=== PATIENT | female | born 1990 | race Hispanic/Latino ===

== ENCOUNTER → 2017-02-14 | Outpatient (CLI) | payer OTHER ==
[~2017-02-14] MED LIST: ACET1TAB43 PO; ACYC200C PO; AGM875T PO; AMOX500C2 PO; CEPH500T PO; CIPR500S2 PO; DOCU-143 PO; FERR-74 PO; FERR325T74 PO; HYDR-3812 PO; IBUP-1773 PO; IBUP-30 PO; MAGN-47 PO; NITR-65 PO; NITR100C PO; NITR100C3 PO; OMEP20CA12 PO; PHEN200T27 PO; PREN-93 PO; PREN1TAB39 PO; PREN1TAB71 PO; PSYL1PAC15 PO; RT-ALBUINH IH
--- NOTE | 2017-02-14 13:48 | Diagnostic Imaging Report ---
INDICATION: Elevated liver function tests. Right upper quadrant ultrasound performed in the routine fashion. FINDINGS: The liver shows normal echogenicity with no focal lesions. Gallbladder has been removed. Common duct is not well seen. There is no intrahepatic biliary dilatation. The pancreas is not well seen due to overlying gas. There is no ascites. Right kidney measures 10.1 cm in length and appears normal. Hepatopetal flow in the normal direction towards the liver. IMPRESSION: Status post cholecystectomy. No evidence of biliary dilatation. No focal liver lesion or ascites. Study is partially limited as described above. Dictated by: Dictated on workstation # [id number]
== END ==
LOC: RAD 07:31
PROVIDERS: ATTEND Family Medicine
DX: R94.5 Abnormal results of liver function studies (principal)
CPT/HCPCS: 76700

== ENCOUNTER 2017-11-07 17:17 | Emergency (ER) | payer SELFPAY ==
[~2017-11-07] VITALS: Ht 152.4 cm; Wt 68.0 kg
[2017-11-07] MEDS ORDERED: LACTATED RINGERS 1,000 ML IV ONE (17:53)
[2017-11-07] MEDS ORDERED: ONDANSETRON 4 MG/2 ML (SDV) Z0FRAN IVP ONE (18:00)
[2017-11-07] MEDS ORDERED: fentaNYL INJECTION 100 MCG/2 ML AMP IVP ONE (18:00)
--- NOTE | 2017-11-07 18:01 | ED Back Pain ---
General Chief Complaint: Back Problems Stated Complaint: LOWER BACK PAIN Source of Information: Patient Exam Limitations: Language Barrier (language line used) (ADAM SON) History of Present Illness Time Seen by Provider: 17:22 Initial Comments Patient present to ER by private conveyance with her family and a chief complaint of back pain on the left side flank. This pain has been getting worse the last 2-3 days. She has a history of about 3 months ago a similar pain that was worked up by her primary care physician Dr. Raygoza and she was told she had a kidney stone. She used ibuprofen and got over it spontaneously. She was recommended to go for more examinations after the CT scan at that time but she says she did not do it. She has a unfortunate history of a 2 week stay in the hospital at [place], [place] after a gallbladder surgery approximately a year ago and this is made her very concerned about going to hospitals or doctors. She says she was seen by her doctor either yesterday or today and was told she needed to stop taking somewhat ibuprofen and come to the ER for further evaluation. She was set up a few days ago to come in for a CT scan but she has not done that yet. Her back pain feels like somebody is inside her flank pressing away and hurts very severe. He feels burning. She has burning when she urinates. She has no shortness of breath. She does have occasional nausea but has not vomited yet. Is better when she is moving around and worse when she tries to lie down or sit still. No history of trauma. She is not seeing any blood in the urine. She denies any fevers or chills. She's had no weakness, falls, incontinence of urine or bowel or hesitancy of urine. She's had no numbness or tingling. She's had no sciatic pains. The pain does not radiate anywhere. (ADAM SON) Allergies and Home Medications Allergies Coded Allergies: No Known Drug Allergies (Unverified , 11/02/16) Home Medications Naproxen 500 Mg Tablet, 500 MG PO BID, #20 Prescribed by: FARZANA GARNER on 11/07/172200 Nitrofurantoin Monohyd/M-Cryst 100 Mg Capsule, 100 MG PO BID, #20 Prescribed by: FARZANA GARNER on 11/07/172200 Constitutional: No chills, No diaphoresis, No fever, No malaise EENTM: No eye pain Respiratory: No cough, No short of breath Cardiovascular: No chest pain, No palpitations Gastrointestinal: abdominal pain, No constipation, No diarrhea, nausea, No vomiting Genitourinary: No discharge, dysuria, frequency Musculoskeletal: see HPI, back pain Skin: No pruritus, No rash Psychiatric/Neurological: Denies Headache, Denies Numbness, Denies Paresthesia (ADAM SON) Past Hakghpx-Fkcamq-Cgoqub Hx Patient Social History Recent Foreign Travel: No Contact w/Someone Who Travel: No Recent Hopitalizations: No (ADAM SON) Immunizations Up To Date Tetanus Booster (TDap): Less than 5yrs PED Vaccines UTD: No Date of Influenza Vaccine: Dec 21, 2015 (ADAM SON) Seasonal Allergies Seasonal Allergies: No (ADAM SON) Surgeries Surgeries: Gallbladder (ADAM SON) Reproductive System Hx Reproductive Disorders: No Sexually Transmitted Disease: Yes (+HSV) HIV/AIDS: No Female Reproductive Disorders: Denies (ADAM SON) Blood Transfusions Adverse Reaction to a Blood Tr: No (ADAM SON) Family Medical History Significant Family History: Cancer Family Medial History: Cancer 19 MOTHER (SPINAL CORD CANCER?) Congenital heart disease G8 SISTER Family history: Cardiovascular disease G8 SISTER MATERNAL GRANDMOTHER Family history: Diabetes mellitus MATERNAL GRANDMOTHER Seizure disorder MATERNAL GRANDMOTHER Stroke MATERNAL GRANDMOTHER (ADAM SON) Family Medial History: Cancer 19 MOTHER (SPINAL CORD CANCER?) Congenital heart disease G8 SISTER Family history: Cardiovascular disease G8 SISTER MATERNAL GRANDMOTHER Family history: Diabetes mellitus MATERNAL GRANDMOTHER Seizure disorder MATERNAL GRANDMOTHER Stroke MATERNAL GRANDMOTHER (FARZANA GARNER DO) Physical Exam Vital Signs Vital Sign - Last 12Hours 11/07/17 17:28 Temp 98.0 Pulse 76 Resp 20 B/P (MAP) 122/73 (89) Pulse Ox 76 O2 Delivery Room Air (ANAHI GARNERA Alice GALAN) Vital Signs Capillary Refill : (ADAM SON) General Appearance: WD/WN, Anxious, Mild Distress HEENT: PERRL/EOMI, Pharynx Normal (oral mucosa is moist) Neck: Full Range of Motion, Normal Inspection, Non Tender (.), Supple Cardiovascular: Regular Rate, Rhythm, No Edema Respiratory: Chest Non Tender, Lungs Clear Peripheral Pulses: 2+ Dorsalis Pedis (R), 2+ Left Dors-Pedis (L), 2+ Radial Pulses (R), 2+ Radial Pulses (L) Gastrointestinal: Normal Bowel Sounds, Non Tender, Soft Back: Normal Inspection, No Vertebral Tenderness, CVA Tenderness (R), Other ( tenderness to palpation over the L5-S1 facet joint that is less painful and different from the pain she is feeling when percussing over her right costovertebral angle.) Extremity: Normal Capillary Refill, Normal Inspection, Non Tender, No Calf Tenderness Neurologic/Psychiatric: Alert, Oriented x3, No Motor/Sensory Deficits Skin: Normal Color, Warm/Dry (ADAM OSN) Progress/Results/Core Measures Results/Orders Lab Results Laboratory Tests Test 11/07/17 18:11 11/07/17 18:26 Range/Units Urine Color YELLOW Urine Clarity SLIGHTLY CLOUDY Urine pH 7 5-9 Urine Specific [place] 1.020 1.016-1.022 Urine Protein 1+ H NEGATIVE Urine Glucose (UA) 3+ H NEGATIVE Urine Ketones NEGATIVE NEGATIVE Urine Nitrite NEGATIVE NEGATIVE Urine Bilirubin NEGATIVE NEGATIVE Urine Urobilinogen NORMAL NORMAL MG/DL Urine Leukocyte Esterase 2+ H NEGATIVE Urine RBC (Auto) 1+ H NEGATIVE Urine RBC 2-5 H /HPF Urine WBC 5-10 H /HPF Urine Squamous Epithelial Cells 10-25 H /HPF Urine Crystals PRESENT H /LPF Urine Amorphous Sediment FEW ANGELA URATES H /LPF Urine Bacteria FEW H /HPF Urine Casts NONE /LPF Urine Mucus NEGATIVE /LPF Urine Culture Indicated YES Urine Test NEGATIVE NEGATIVE Urine Opiates Screen NEGATIVE NEGATIVE Urine Oxycodone Screen NEGATIVE NEGATIVE Urine Methadone Screen NEGATIVE NEGATIVE Urine Propoxyphene Screen NEGATIVE NEGATIVE Urine Barbiturates Screen NEGATIVE NEGATIVE Ur Tricyclic Antidepressants Screen NEGATIVE NEGATIVE Urine Phencyclidine Screen NEGATIVE NEGATIVE Urine Amphetamines Screen NEGATIVE NEGATIVE Urine Methamphetamines Screen NEGATIVE NEGATIVE Urine Benzodiazepines Screen NEGATIVE NEGATIVE Urine Cocaine Screen NEGATIVE NEGATIVE Urine Cannabinoids Screen NEGATIVE NEGATIVE White Blood Count 12.2 H 4.3-11.0 10^3/uL Red Blood Count 4.41 4.35-5.85 10^6/uL Hemoglobin 13.5 11.5-16.0 G/DL Hematocrit 39 35-52 % Mean Corpuscular Volume 88 80-99 FL Mean Corpuscular Hemoglobin 31 25-34 PG Mean Corpuscular Hemoglobin Concent 35 32-36 G/DL Red Cell Distribution Width 12.8 10.0-14.5 % Platelet Count 367 130-400 10^3/uL Mean Platelet Volume 9.1 7.4-10.4 FL Neutrophils (%) (Auto) 52 42-75 % Lymphocytes (%) (Auto) 30 12-44 % Monocytes (%) (Auto) 9 0-12 % Eosinophils (%) (Auto) 9 0-10 % Basophils (%) (Auto) 0 0-10 % Neutrophils # (Auto) 6.4 1.8-7.8 X 10^3 Lymphocytes # (Auto) 3.6 1.0-4.0 X 10^3 Monocytes # (Auto) 1.1 H 0.0-1.0 X 10^3 Eosinophils # (Auto) 1.1 H 0.0-0.3 10^3/uL Basophils # (Auto) 0.0 0.0-0.1 10^3/uL Sodium Level 141 135-145 MMOL/L Potassium Level 3.5 L 3.6-5.0 MMOL/L Chloride Level 108 H 98-107 MMOL/L Carbon Dioxide Level 25 21-32 MMOL/L Anion Gap 8 5-14 MMOL/L Blood Urea Nitrogen 11 7-18 MG/DL Creatinine 0.55 L 0.60-1.30 MG/DL Estimat Glomerular Filtration Rate > 60 BUN/Creatinine Ratio 20 Glucose Level 118 H 70-105 MG/DL Calcium Level 8.7 8.5-10.1 MG/DL Total Bilirubin 0.2 0.1-1.0 MG/DL Aspartate Amino Transf (AST/SGOT) 19 5-34 U/L Alanine Aminotransferase (ALT/SGPT) 22 0-55 U/L Alkaline Phosphatase 115 40-136 U/L Total Protein 7.5 6.4-8.2 GM/DL Albumin 3.8 3.2-4.5 GM/DL (SHREYAS,FARZANA K DO) My Orders Orders - SHREYAS,FARZANA K DO Ct Abd/Pelvis Wo(Kidney Stone) (11/07/17 18:29) Abdomen/Kub 1view (11/07/17 18:29) Ceftriaxone Injection (Rocephin Injectio (11/07/17 21:00) Rx-Nitrofurantoin Baker (Rx-Macrobid) (11/07/17 22:01) Rx-Naproxen (Rx-Naprosyn) (11/07/17 22:01) (FARZANA GARNER DO) Medications Given in ED Current Medications Medications Dose Ordered Sig/Sunny Route Start Time Stop Time Status Last Admin Dose Admin Ceftriaxone Sodium 1000 mg/ Sodium Chloride 50 ml @ 100 mls/hr ONCE ONCE IV 11/07/17 21:00 11/07/17 21:29 DC 11/07/17 21:03 100 MLS/HR Fentanyl Citrate 50 mcg ONCE ONCE IVP 11/07/17 18:00 11/07/17 18:01 DC 11/07/17 18:11 50 MCG Lactated Ringer's 1,000 ml @ 0 mls/hr Q0M ONCE IV 11/07/17 17:53 11/07/17 17:56 DC 11/07/17 18:11 0 MLS/HR Ondansetron HCl 4 mg ONCE ONCE IVP 11/07/17 18:00 11/07/17 18:01 DC 11/07/17 18:11 4 MG (FARZANA GARNER DO) Vital Signs/I&O Vital Sign - Last 12Hours 11/07/17 17:28 Temp 98.0 Pulse 76 Resp 20 B/P (MAP) 122/73 (89) Pulse Ox 76 O2 Delivery Room Air (FARZANA GARNER DO) Progress Note : Time: 18:01 Progress Note Her pain is consistent with a kidney stone. We'll proceed with let and urine as well as treat her pain and nausea. If the urine shows red blood cells we'll get a CT scan of her abdomen pelvis without contrast. (ADAM SON) Progress Note : Progress Note 183--ASSUMED CARE FROM DR. SON, ALL TESTS PENDING. PT IS PAIN FREE MARKED DELAY IN OBTAINING CT RESULTS NO RETURN OF PAIN DURING ER STAY (FARZANA GARNER DO) Diagnostic Imaging Diagonstic Imaging: CT Plain Films/CT/US/NM/MRI: abdomen, pelvis (noncontrast kidney stone study.) Reviewed: Reviewed by Me (ADAM SON) Comments KUB--NO ACUTE PROCESS, PER RADIOLOGIST REPORT CT ABDOMEN/PELVIS--NO ACUTE PROCESS, BILATERAL NON -OBSTRUCTING INTRARENAL STONES, 3 CM RIGHT OVARIAN CYST--PER [facility]IE RADIOLOGIST VIA PHONE AT [phone] AND VIA [facility] VIA FAX @ [phone] Reviewed: Reviewed by Me, Discussed w/Radiologist (FARZANA GARNER DO) Transfer of Care Transfer of Care Time: 18:30 Care transferred to: Shreyas (ADAM SON) Departure Impression Impression: Primary Impression: Urinary tract infection Additional Impression: Right ovarian cyst Disposition: HOME, SELF-CARE Condition: Improved Departure-Patient Inst. Referrals: ESTRADA RAYGOZA MD (PCP/Family) Primary Care Physician Patient Instructions: Ovarian Cyst (DC), Urinary Tract Infection, Adult (DC) Add. Discharge Instructions: LOTS OF CLEAR LIQUIDS--NO COFFEE, POP OR TEA FOLLOW UP WITH DR. RAYGOZA IN 3-4 DAYS IF NO BETTER All discharge instructions reviewed with patient and/or family. Voiced understanding. Scripts Naproxen (Naproxen) 500 Mg Tablet 500 MG PO BID, #20 TAB Prov: FARZANA GARNER DO 11/07/17 Nitrofurantoin Monohyd/M-Cryst (Macrobid 100 mg Capsule) 100 Mg Capsule 100 MG PO BID, #20 CAP Prov: FARZANA GARNER DO 11/07/17 ADAM SON Nov 07, 2017 18:01 FARZANA GARNER DO Nov 07, 2017 18:38
[2017-11-07 18:30] LABS: BILIRUBIN,URINE NEGATIVE (NEGATIVE); KETONES,URINE NEGATIVE (NEGATIVE); LEUKOCYTE ESTERASE ,URINE 2+ (NEGATIVE); NITRITE,URINE NEGATIVE (NEGATIVE); PH,URINE 7 (5-9); PROTEIN,URINE 1+ (NEGATIVE); UROBILINOGEN,URINE NORMAL (NORMAL)
[2017-11-07 18:34] LABS: BASOPHILS % (AUTO) 0 % (0-10); EOSINOPHILS # (AUTO) 1.1 10^3/uL (0.0-0.3); EOSINOPHILS % (AUTO) 9 % (0-10); LYMPHOCYTES # (AUTO) 3.6 X 10^3 (1.0-4.0); LYMPHOCYTES % (AUTO) 30 % (12-44); MEAN CORPUSCULAR HEMOGLOBIN 31 PG (25-34); MEAN CORPUSCULAR HGB CONC 35 G/DL (32-36); MEAN CORPUSCULAR VOLUME 88 FL (80-99); MEAN PLATELET VOLUME 9.1 FL (7.4-10.4); MONOCYTES # (AUTO) 1.1 X 10^3 (0.0-1.0); MONOCYTES % (AUTO) 9 % (0-12); NEUTROPHILS # (AUTO) 6.4 X 10^3 (1.8-7.8); NEUTROPHILS % (AUTO) 52 % (42-75); PLATELET COUNT 367 10^3/uL (130-400); RED BLOOD COUNT 4.41 10^6/uL (4.35-5.85); RED CELL DISTRIBUTION WIDTH 12.8 % (10.0-14.5); WHITE BLOOD COUNT 12.2 10^3/uL (4.3-11.0)
[2017-11-07 19:00] LABS: ALANINE AMINOTRANSFERASE 22 U/L (0-55); ALBUMIN 3.8 GM/DL (3.2-4.5); ANION GAP 8 MMOL/L (5-14); ASPARTATE AMINO TRANSFERASE 19 U/L (5-34); BILIRUBIN,TOTAL 0.2 MG/DL (0.1-1.0); BLOOD UREA NITROGEN 11 MG/DL (7-18); BUN/CREATININE RATIO 20; CALCIUM 8.7 MG/DL (8.5-10.1); CARBON DIOXIDE 25 MMOL/L (21-32); CHLORIDE 108 MMOL/L (98-107); CREATININE SERUM 0.55 MG/DL (0.60-1.30); GFR ESTIMATED > 60; GLUCOSE 118 MG/DL (70-105); POTASSIUM 3.5 MMOL/L (3.6-5.0); SODIUM 141 MMOL/L (135-145); TOTAL PROTEIN 7.5 GM/DL (6.4-8.2)
--- NOTE | 2017-11-07 19:17 | Diagnostic Imaging Report ---
INDICATION: Right flank pain. COMPARISON: 10/20/2016. TECHNIQUE: Single radiograph of the abdomen dated 11/07/2017. FINDINGS: Surgical clips are identified within the right upper quadrant of the abdomen, new from the prior examination. 0.4 cm calcific density is noted overlying the inferior pole of the right renal shadow. No suspicious calcifications overlying the left renal shadow. Y-shaped radiopaque density overlying the midline pelvis, consistent with an intrauterine device, new from the prior exam. Gas and stool is noted throughout the colon. No dilated loops of small bowel. No differential air-fluid levels. No free air. No acute osseous abnormality. IMPRESSION: 1. Interval cholecystectomy and placement of intrauterine device. 2. There is a 4 mm calcification overlying the inferior pole of the right renal shadow, likely related to a renal calculus. Dictated by: Dictated on workstation # [id number]
[2017-11-07] MEDS ORDERED: cefTRIAXone INJECTION 1,000 MG in NS (IVPB) 50 ML IV ONE (21:00)
[2017-11-07] MEDS ORDERED: NITR-65 PO (22:01)
[2017-11-07] MEDS ORDERED: NAPR500T4 PO (22:01)
[2017-11-07] MEDS ORDERED: RX-NAPROXEN (NAPROSYN) 250 MG TAB PPK#4 PO STA (22:01)
[2017-11-07] MEDS ORDERED: RX-NITROFURANTOIN 100 MG (MACROBID) CAP PPK#2 PO STA (22:01)
[2017-11-07] MEDS ORDERED: RX-NITROFURANTOIN 100 MG (MACROBID) CAP PPK#2 PO ONE (22:07)
[2017-11-07] MEDS ORDERED: RX-NAPROXEN (NAPROSYN) 250 MG TAB PPK#4 PO ONE (22:08)
[2017-11-07 22:14] VITALS: BP 106/69
--- NOTE | 2017-11-08 23:14 | Diagnostic Imaging Report ---
PROCEDURE: CT urinary tract, rule out kidney stone. TECHNIQUE: Multiple contiguous axial images were obtained through the abdomen and pelvis without the use of intravenous contrast. INDICATION: Right flank pain 3 days ago. COMPARISON: 11/03/2016 FINDINGS: There is minimal atelectasis in the lung bases. No pericardial effusion is seen. The heart is normal in size. The liver appears normal. Cholecystectomy clips are noted, including one clip at the inferior tip of the liver. The spleen appears normal. The pancreas is unremarkable. The adrenal glands appear normal. There is a nonobstructing calculus in the right kidney measuring 6 mm in diameter. No obstructing right renal calculi are seen. There is no hydronephrosis or hydroureter present. There are punctate nonobstructing calculi in the left kidney with no hydronephrosis or hydroureter. The bowel loops are nondistended. No evidence of obstruction is seen. The appendix appears normal. There is diverticulosis without diverticulitis. A cystic structure is seen in the right adnexa, likely ovarian in origin measuring 3 cm in diameter. An intrauterine device is seen. There is trace free fluid in the pelvis, likely physiologic. No free air is seen. No acute osseous abnormality is seen. IMPRESSION: 1. Nonobstructing calculi in the kidneys bilaterally, the largest measuring up to 6 mm on the right. There is no hydronephrosis or hydroureter. 2. Right ovarian cyst measuring 3 cm in diameter. Dictated by: Dictated on workstation # [id number]
== END 2017-11-07 22:11 | disposition home or self-care (01) ==
LOC: EDUNIT# 17:17 → ER 17:18
DX: N39.0 Urinary tract infection, site not specified (principal); N83.201 Unspecified ovarian cyst, right side; Z87.442 Personal history of urinary calculi; Z82.49 Family history of ischemic heart disease and other diseases of the circulatory system; Z80.9 Family history of malignant neoplasm, unspecified
CPT/HCPCS: 36415; 74000; 74176; 80053; 80306; 81000; 84703; 85025; 87088

== ENCOUNTER 2017-12-05 08:16 | Outpatient (CLI) | payer SELFPAY ==
[~2017-12-05] VITALS: Ht 152.4 cm; Wt 68.0 kg
[~2017-12-05 08:16] MED LIST changes: +ACHD5005 PO; -HYDR-3812 PO; +NAPR500T4 PO
[2017-12-05] MEDS ORDERED: NAPR500T4 PO (14:40)
== END 2017-12-05 14:48 ==
LOC: PREOP 08:16
PROVIDERS: ATTEND Surgery
DX: Z01.818 Encounter for other preprocedural examination (principal); R10.11 Right upper quadrant pain; R19.7 Diarrhea, unspecified

== ENCOUNTER 2017-12-10 12:28 | Day surgery (SDC) | payer SELFPAY ==
[~2017-12-10] VITALS: Ht 152.4 cm; Wt 68.0 kg
[~2017-12-10 12:28] MED LIST changes: -FERR-74 PO; +FERR325T18 PO
[2017-12-10 12:50] VITALS: BP 104/59
[2017-12-10] MEDS ORDERED: LACTATED RINGERS 1,000 ML IV ONE (12:56)
--- NOTE | 2017-12-10 12:56 | Progress Note-Pre Operative ---
Pre-Operative Progress Note H&P Reviewed The H&P was reviewed, patient examined and no changes noted. Time Seen by Provider: 12:47 Date H&P Reviewed: Dec 10, 2017 Time H&P Reviewed: 12:51 Pre-Operative Diagnosis: Gastritis, Rectal Bleeding MINE GREY DO Dec 10, 2017 12:56
[2017-12-10] MEDS ORDERED: LACTATED RINGERS 1,000 ML IV STA (13:04)
[2017-12-10] MEDS ORDERED: HURRICAINE EXT TUBE (BENZOCAINE) XX PRN (13:15)
[2017-12-10] MEDS ORDERED: MIDAZOLAM 2 MG/2 ML (VERSED) VIAL ONE ×2 (14:00→14:16)
[2017-12-10] MEDS ORDERED: PROPOFOL INJECTION 50 ML IV ONE ×2 (14:00→14:08)
[2017-12-10] MEDS ORDERED: HURRICAINE EXT TUBE (BENZOCAINE) ONE (14:14)
[2017-12-10] MEDS ORDERED: fentaNYL INJECTION 100 MCG/2 ML AMP ONE (14:23)
--- NOTE | 2017-12-10 14:41 | Progress Note-Post Operative ---
Post-Operative Progess Note Surgeon (s)/Quality Control Microbiology Supervisor (s) Surgeon MINE GREY DO Quality Control Microbiology Supervisor: Emeka Bland MS III Pre-Operative Diagnosis Gastritis, Rectal Bleeding Post-Operative Diagnosis Gastritis Diverticula Internal Hemorrhoids Procedure & Operative Findings Date of Procedure 12/10/17 Procedure Performed/Findings EGD with bx Colonoscopy Anesthesia Type IV sedation by WORKING MANAGER Estimated Blood Loss Estimated blood loss (mL): scant Specimens/Packing Specimens Removed Antral Bx Cardia Bx MINE GREY DO Dec 10, 2017 14:41
--- NOTE | 2017-12-10 14:42 | Endoscopy Discharge Instruct ---
Endo Procedure/Findings Findings 1.: Gastritis 2.: Diverticulosis 3.: Internal Hemorrhoids Discharge Instructions - Activity: You might feel a little sleepy until tomorrow. This is due to the medicine you received to relax you. Until tomorrow, you should: NOT drive a car, operate machinery or power tools. NOT drink any alcoholic beverages. NOT make any important decisions or sign importortant papers. Do not return to work until tomorrow, unless otherwise instructed. Resume previous activities tomorrow. Diet: Start by taking liquids. If you tolerate liquids, advance to solid food. Make appointment for 1 week. Notify Physician - If you experience excessive bleeding, unusual abdominal pain, fever, or chest pain, contact your doctor immediately. Follow-Up: - I have received and understand the above instructions and will call my doctor if I have any further questions. Patient Signature Date Nurse Signature Other (Relationship) MINE GREY DO Dec 10, 2017 14:42
[2017-12-10 14:55] VITALS: BP 92/68
[2017-12-10 15:30] VITALS: BP 92/68
--- NOTE | 2017-12-11 01:04 | OPERATIVE REPORT ---
DATE OF SERVICE: 12/10/2017 PREOPERATIVE DIAGNOSES: 1. Gastritis. 2. Rectal bleeding, abdominal pain. POSTOPERATIVE DIAGNOSES: 1. Gastritis. 2. Diverticula. 3. Internal hemorrhoids. PROCEDURES PERFORMED: 1. Esophagogastroduodenoscopy with biopsy. 2. Colonoscopy. SURGEON: Pardeep Hassan DO. SENIOR MASTER SCHEDULER: Emeka Bland, medical student III year. ANESTHESIA: IV sedation by SOFT SUGAR SUPERVISOR. SPECIMEN: One biopsy from antrum, one biopsy from the cardia. BLOOD LOSS: Scant. FLUIDS: Per Anesthesia. POSTOPERATIVE CONDITION: Stable. INDICATION FOR PROCEDURE: The patient is a 27-year-old female, who has been having some abdominal pain, history of laparoscopic cholecystectomy with ERCP and she needed a workup for this gastritis and also she did have some rectal bleed and needed a colonoscopy. FINDINGS: The patient had a pretty severe gastritis in the antrum and the cardia. Cardia actually looked worse. Duodenum looked okay. She also in the colon had some small diverticula and some internal hemorrhoids, most likely those were the cause of her bleeding. PROCEDURE NOTE: After informed consent was obtained, the patient was brought to the endoscopy suite and placed in the left lateral position, started with the EGD, placed the scope down the mouth into the esophagus and down into the stomach. There were some areas of almost what looked like a little bit of bleeding, petechiae and definitely inflammation in the antrum. Cardia was actually worse. I pushed into the antrum, pushed into the first portion of the duodenum and looked good. Took a picture and then slowly withdrew the scope out back into the stomach and then did a biopsy in the antrum. Retroflexed and did a biopsy in the cardia. cardia was more red and inflamed. I did not really see any hiatal hernia. The GE junction looked okay, although it looked there is some Z-line starting to creep up, but not really enough that look like again Thakkar's or needed to do a biopsy here. I then pulled the scope up the esophagus and out the mouth. The patient tolerated this procedure. Switched gloves and switched scopes and started the colonoscopy. Inserted the colonoscopy into the rectum and then pushed all the way about 150 cm, able to get all the way to cecum, took a picture of the appendiceal orifice and then able to get into the terminal ileum, took a picture and then slowly withdrew the scope insufflating and looked circumferentially at the ovalle looking at the cecum up the ascending colon to the hepatic flexure, then down the transverse colon, the splenic flexure, into the descending colon and then in the descending colon and in the sigmoid, saw some small diverticula, continued down into the rectum, retroflexed the rectal vault, saw some minimal internal hemorrhoids, took a picture of this and then removed the scope. The patient tolerated the procedure and she was recovered in the endoscopy suite. Job ID: [id number] DocumentID: [id number] Dictated Date: 12/10/2017 14:47:25 Document Reviewer Date: 12/11/2017 01:04:08 Dictated By: DO TOMASZ MARTINEZ
== END 2017-12-10 15:35 | disposition home or self-care (01) ==
LOC: ENDO 12:28
PROVIDERS: ATTEND Surgery
DX: K29.50 Unspecified chronic gastritis without bleeding (principal); B96.81 Helicobacter pylori [H. pylori] as the cause of diseases classified elsewhere; K57.30 Diverticulosis of large intestine without perforation or abscess without bleeding; K64.8 Other hemorrhoids; Z87.442 Personal history of urinary calculi
CPT/HCPCS: 84703

== ENCOUNTER → 2018-04-23 | Outpatient (CLI) | payer SELFPAY ==
[~2018-04-23] MED LIST changes: +NAPR-915 PO; -NAPR500T4 PO
--- NOTE | 2018-04-23 19:13 | Diagnostic Imaging Report ---
INDICATION: Left lower pelvic pain. TECHNIQUE: Multiple real time segundo scale sonographic images were obtained of the pelvis, transabdominally and transvaginally. CORRELATION STUDY: None. FINDINGS: UTERUS/ENDOMETRIUM: Uterus measures 7.5 x 3.9 x 3.9 cm. Endometrial thickness is 7 mm. There is presence of intrauterine contraceptive device. There does produce abnormal position orientation of the device projecting posteriorly into the myometrium. RIGHT OVARY: 4.0 x 2.6 x 3.0 cm. LEFT OVARY: Not visualized, perhaps obscured by overlying bowel gas and/or positioning. The right ovary contains an approximately 3 cm hypoechoic mass, compatible with a cyst. Additional smaller cysts and/or follicles are present. Vascular flow is demonstrated to the right ovary. No significant free pelvic fluid. IMPRESSION: 1. Intrauterine contraceptive device is present. However, the orientation suggests positioning into the myometrium, posteriorly. 2. Nonvisualization of the left ovary, perhaps obscured by bowel gas and/or positioning. 3. Approximately 3 cm right ovarian cyst. Dictated by: Dictated on workstation # [id number]
== END ==
LOC: RAD 17:26
PROVIDERS: ATTEND Family Medicine
DX: N83.201 Unspecified ovarian cyst, right side (principal); Z97.5 Presence of (intrauterine) contraceptive device
CPT/HCPCS: 76830; 76856

== ENCOUNTER → 2018-04-24 | Outpatient (CLI) | payer SELFPAY | LOC: LAB 11:34 | PROVIDERS: ATTEND Family Medicine | DX: O20.0 Threatened abortion (principal) | CPT/HCPCS: 36415; 84702 ==

== ENCOUNTER 2018-12-10 17:59 | Emergency (ER) | payer SELFPAY ==
[~2018-12-10] VITALS: Ht 160 cm; Wt 81.6 kg
[2018-12-10] MEDS ORDERED: LACTATED RINGERS 1,000 ML IV ONE (18:16)
[2018-12-10 18:23] LABS: BASOPHILS % (AUTO) 0 % (0-10); EOSINOPHILS # (AUTO) 0.4 10^3/uL (0.0-0.3); EOSINOPHILS % (AUTO) 2 % (0-10); HEMATOCRIT 40 % (35-52); HEMOGLOBIN 13.9 G/DL (11.5-16.0); LYMPHOCYTES # (AUTO) 4.4 X 10^3 (1.0-4.0); LYMPHOCYTES % (AUTO) 28 % (12-44); MEAN CORPUSCULAR HEMOGLOBIN 30 PG (25-34); MEAN CORPUSCULAR HGB CONC 35 G/DL (32-36); MEAN CORPUSCULAR VOLUME 87 FL (80-99); MEAN PLATELET VOLUME 8.7 FL (7.4-10.4); MONOCYTES # (AUTO) 1.1 X 10^3 (0.0-1.0); MONOCYTES % (AUTO) 7 % (0-12); NEUTROPHILS % (AUTO) 63 % (42-75); PLATELET COUNT 495 10^3/uL (130-400); RED BLOOD COUNT 4.61 10^6/uL (4.35-5.85); RED CELL DISTRIBUTION WIDTH 12.8 % (10.0-14.5)
--- NOTE | 2018-12-10 18:24 | ED Abdominal Pain ---
General Chief Complaint: Abdominal/GI Problems Stated Complaint: ABD PAIN Nursing Triage Note: ARRIVED VIA WC TO ROOM 1807. COMPLAINS OF EPIGASTRIC PAIN X5 DAYS. 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 INTERPRETS) Exam Limitations: Language Barrier (BUT PT UNDERSTANDS FAROESE, SHE IS ANSWERING MY QUESTIONS, BUT IN KHMER, BEFORE KITCHENWHERE MAKER ASKS MY QUESTIONS) History of Present Illness Date Seen by Provider: Dec 10, 2018 Time Seen by Provider: 18:05 Initial Comments PT ARRIVES VIA POV FROM [facility] "CAN'T" STAND UP--REQUIRES 3 PERSON ASSIST TO TRANSFER FROM WHEELCHAIR TO ER CART. WAS SENT HERE BECAUSE PT WAS C/O SEVERE ABDOMINAL PAIN AND WOULD NOT TALK/ONLY MOANING AND PT DOES NOT SPEAK FAROESE C/O EPIGASTRIC PAIN X 5 DAYS + NAUSEA, NO VOMITING HAD NORMAL BM THIS AM BUT WAS DARK PT HAS BEEN TAKING UNKNOWN OTC MEDICATIONS FOR "GAS" PT TOOK 2000 MG TYLENOL 2 HOURS AGO PT FIRST STATES SHE HAS NOT BEEN EATING OR DRINKING, THEN LATER STATES SHE HAS CONTINUED TO TAKE "LIQUIDS", ACCORDING TO HER, WHICH INCLUDES BROCCOLI AND CHEDDAR SOUP, OATMEAL AND GATORADE--ATE AROUND 11:00 AM TODAY, HAS CONTINUED TO DRINK FLUIDS--WATER AND GATORADE NO FEVER NO PROBLEMS URINATING LMP 2 WEEKS AGO AND NOW. NO CONTROL PCP: ROSA MARIA Allergies and Home Medications Allergies Coded Allergies: No Known Drug Allergies (Unverified , 11/02/16) Home Medications Hyoscyamine Sulfate 0.125 Mg Tab.subl, 1-2 TAB SL Q4H Prescribed by: FARZANA GARNER on 12/10/181948 Ondansetron 4 Mg Tab.rapdis, 4 MG PO Q4H Prescribed by: FARZANA GARNER on 12/10/181948 Pantoprazole Sodium 40 Mg Tablet.dr, 40 MG PO DAILY Prescribed by: FARZANA GARNER on 12/10/181948 Sucralfate 1 Gm Tablet, 1 GM PO QIDACHS Prescribed by: FARZANA GARNER on 12/10/181948 Patient Home Medication List Home Medication List Reviewed: Yes Review of Systems Review of Systems Constitutional: no symptoms reported Respiratory: No Symptoms Reported Cardiovascular: No Symptoms Reported Gastrointestinal: See HPI, Abdominal Pain; Denies Constipated, Denies Diarrhea ; Nausea; Denies Vomiting Genitourinary: No Symptoms Reported Musculoskeletal: no symptoms reported Skin: no symptoms reported Psychiatric/Neurological: No Symptoms Reported Endocrine: No Symptoms Reported Hematologic/Lymphatic: No Symptoms Reported Past Toxfiuj-Ohffjx-Zzsoxp Hx Patient Social History Alcohol Use: Denies Use Recreational Drug Use: No Smoking Status: Never a Smoker 2nd Hand Smoke Exposure: No Recent Foreign Travel: No Contact w/Someone Who Travel: No Recent Infectious Disease Expo: No Recent Hopitalizations: No Immunizations Up To Date Tetanus Booster (TDap): Less than 5yrs PED Vaccines UTD: No Date of Influenza Vaccine: Dec 21, 2015 Seasonal Allergies Seasonal Allergies: No Past Medical History Surgeries: Yes (ERCP AFTER CHOLECYSTECTOMY) Gallbladder Respiratory: No Cardiac: No Neurological: No Reproductive Disorders: No Female Reproductive Disorders: Denies Sexually Transmitted Disease: Yes (+HSV) HIV/AIDS: No Gastrointestinal: Yes (S/P JOHN AND ERCP) Chronic Diarrhea, Gall Bladder Disease Musculoskeletal: No Endocrine: No HEENT: No Cancer: No Psychosocial: No Integumentary: No Blood Disorders: Yes (ANEMIA) Adverse Reaction/Blood Tranf: No Family Medical History Cancer 19 MOTHER (SPINAL CORD CANCER?) Congenital heart disease G8 SISTER Family history: Cardiovascular disease G8 SISTER MATERNAL GRANDMOTHER Family history: Diabetes mellitus MATERNAL GRANDMOTHER Seizure disorder MATERNAL GRANDMOTHER Stroke MATERNAL GRANDMOTHER Cancer Physical Exam Vital Signs Vital Signs - First Documented 12/10/18 18:07 Temp 97.9 Pulse 74 Resp 16 B/P (MAP) 128/86 (100) Pulse Ox 98 O2 Delivery Room Air Capillary Refill : Less Than 3 Seconds Height/Weight/BMI Height: 5'3.00" Weight: 180lbs. 0.0oz. 81.319249ng; 29.3 BMI Method:Estimated General Appearance: other (EXTERMELY DRAMATING--MOANING, WAILING, THRASHING, BUT NO TEARS AND NO EXPRESSION ON FACE AT ALL. ALL MOANING AND THRASHING STOPS WHEN DISTRACTED AND WHEN NO ONE ELSE IN ROOM WITH PT. PT ALSO ABLE TO STAND, AND WALK TO BATHROOM AND ABLE TO STAND AND TRANSFER FROM ER CART TO [facility]EL[facility], AND ABLE TO STAND, SIT UPRIGHT ETC. ON RETURN FROM XRAY DEPT -NO ONE ELSE IN ROOM WITH PT ) HEENT: PERRL/EOMI Respiratory: normal breath sounds, no respiratory distress, no accessory muscle use Cardiovascular: regular rate, rhythm, no murmur Gastrointestinal: normal bowel sounds, soft, no organomegaly, no pulsatile mass ; No distended, No guarding, No rebound; tenderness (EPIGASTRIC) Genital/Rectal: other (CURRENTLY ON PERIOD AND ACTIVELY BLEEDING, BUT NOT HEMORRHAGING--PT IS NOT WEARING A PAD OR TAMPON. 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, no motor/sensory deficits, alert, oriented x 3 Skin: normal color, warm/dry; No rash Progress/Results/Core Measures Results/Orders Lab Results Laboratory Tests Test 12/10/18 18:12 12/10/18 18:30 Range/Units White Blood Count 16.0 H 4.3-11.0 10^3/uL Red Blood Count 4.61 4.35-5.85 10^6/uL Hemoglobin 13.9 11.5-16.0 G/DL Hematocrit 40 35-52 % Mean Corpuscular Volume 87 80-99 FL Mean Corpuscular Hemoglobin 30 25-34 PG Mean Corpuscular Hemoglobin Concent 35 32-36 G/DL Red Cell Distribution Width 12.8 10.0-14.5 % Platelet Count 495 H 130-400 10^3/uL Mean Platelet Volume 8.7 7.4-10.4 FL Neutrophils (%) (Auto) 63 42-75 % Lymphocytes (%) (Auto) 28 12-44 % Monocytes (%) (Auto) 7 0-12 % Eosinophils (%) (Auto) 2 0-10 % Basophils (%) (Auto) 0 0-10 % Neutrophils # (Auto) 10.0 H 1.8-7.8 X 10^3 Lymphocytes # (Auto) 4.4 H 1.0-4.0 X 10^3 Monocytes # (Auto) 1.1 H 0.0-1.0 X 10^3 Eosinophils # (Auto) 0.4 H 0.0-0.3 10^3/uL Basophils # (Auto) 0.0 0.0-0.1 10^3/uL Neutrophils % (Manual) 47 % Lymphocytes % (Manual) 36 % Monocytes % (Manual) 4 % Eosinophils % (Manual) 5 % Basophils % (Manual) 0 % Band Neutrophils 8 % Blood Morphology Comment NORMAL Sodium Level 138 135-145 MMOL/L Potassium Level 3.8 3.6-5.0 MMOL/L Chloride Level 105 98-107 MMOL/L Carbon Dioxide Level 23 21-32 MMOL/L Anion Gap 10 5-14 MMOL/L Blood Urea Nitrogen 11 7-18 MG/DL Creatinine 0.66 0.60-1.30 MG/DL Estimat Glomerular Filtration Rate > 60 BUN/Creatinine Ratio 17 Glucose Level 88 70-105 MG/DL Calcium Level 9.4 8.5-10.1 MG/DL Corrected Calcium 9.2 8.5-10.1 MG/DL Total Bilirubin 0.2 0.1-1.0 MG/DL Aspartate Amino Transf (AST/SGOT) 29 5-34 U/L Alanine Aminotransferase (ALT/SGPT) 38 0-55 U/L Alkaline Phosphatase 129 40-136 U/L Total Protein 8.6 H 6.4-8.2 GM/DL Albumin 4.3 3.2-4.5 GM/DL Amylase Level 62 25-125 U/L Lipase 73 8-78 U/L Serum Test, Qualitative NEGATIVE NEGATIVE Urine Color RED H Urine Clarity VERY CLOUDY H Urine pH 7 5-9 Urine Specific Jackson 1.010 L 1.016-1.022 Urine Protein 2+ H NEGATIVE Urine Glucose (UA) NEGATIVE NEGATIVE Urine Ketones NEGATIVE NEGATIVE Urine Nitrite NEGATIVE NEGATIVE Urine Bilirubin NEGATIVE NEGATIVE Urine Urobilinogen NORMAL NORMAL MG/DL Urine Leukocyte Esterase 1+ H NEGATIVE Urine RBC (Auto) 5+ H NEGATIVE Urine RBC >100 H /HPF Urine WBC 2-5 /HPF Urine Squamous Epithelial Cells 2-5 /HPF Urine Crystals NONE /LPF Urine Bacteria FEW H /HPF Urine Casts NONE /LPF Urine Mucus NEGATIVE /LPF Urine Culture Indicated NO My Orders Orders - FARZANA GARNER DO Saline Lock/Iv-Start (12/10/18 18:16) Amylase (12/10/18 18:16) Cbc With Automated Diff (12/10/18 18:16) Comprehensive Metabolic Panel (12/10/18 18:16) Hcg,Qualitative Serum (12/10/18 18:16) Lipase (12/10/18 18:16) Ua Culture If Indicated (12/10/18 18:16) Saline Lock/Iv-Start (12/10/18 18:16) Lactated Ringers (Lr 1000 Ml Iv Solution (12/10/18 18:16) Ondansetron Injection (Zofran Injectio (12/10/18 18:30) Manual Differential (12/10/18 18:12) Ct Abd/Pelvis Wo(Kidney Stone) (12/10/18 18:55) Hyoscyamine Sl Tablet (Levsin Sl Tablet) (12/10/18 19:00) Ketorolac Injection (Toradol Injection) (12/10/18 18:55) Pantoprazole Injection (Protonix Injecti (12/10/18 18:55) Acute Abd Series (12/10/18 18:55) Medications Given in ED Current Medications Medications Dose Ordered Sig/Sunny Route Start Time Stop Time Status Last Admin Dose Admin Hyoscyamine Sulfate 0.25 mg ONCE ONCE SL 12/10/18 19:00 12/10/18 19:08 DC 12/10/18 19:14 0.25 MG Lactated Ringer's 1,000 ml @ 0 mls/hr Q0M ONCE IV 12/10/18 18:16 12/10/18 18:18 DC 12/10/18 18:35 1,000 MLS/HR Ondansetron HCl 8 mg ONCE ONCE IVP 12/10/18 18:30 12/10/18 18:31 DC 12/10/18 18:35 8 MG Vital Signs/I&O 12/10/18 18:07 Temp 97.9 Pulse 74 Resp 16 B/P (MAP) 128/86 (100) Pulse Ox 98 O2 Delivery Room Air Blood Pressure Mean: 100 Progress Progress Note : Progress Note SYMPTOMS IMPROVED/ RESOLVED AT DISMISSAL ON RETURN FROM CT, PT SITTING ON SIDE OF BED, TALKING ON PHONE, WITH MALE S.O. IN ROOM ALSO ON THE PHONE. PT DOES NOT APPEAR TO BE IN ANY DISCOMFORT OR DISTRESS. BOTH PT AND MALE S.O. ARE UNDERSTANDING AND REPLYING IN FAROESE. Diagnostic Imaging Comments CT ABDOMEN/PELVIS--NO ACUTE PROCESS, TINY / PUNCTATE BILATERAL INTRARENAL / NON- OBSTRUCTING STONES. PER RADIOLOGIST REPORT @ 1945 ACUTE ABDOMEN XRAYS--NO ACUTE PROCESS, PENDING RADIOLOGIST REVIEW Reviewed: Reviewed by Me Departure Impression Primary Impression: Epigastric pain Disposition: 01 HOME, SELF-CARE Condition: Improved Departure-Patient Inst. Referrals: ESTRADA RAYGOZA MD (PCP/Family) Primary Care Physician Patient Instructions: Acute Abdomen (Belly Pain), Adult (DC) Add. Discharge Instructions: CLEAR LIQUIDS--WATER, BROTH, JELLO, GATORADE--NOTHING ELSE TO EAT OR DRINK UNTIL YOUR PAIN HAS BEEN COMPLETELY GONE FOR 24 HOURS WHEN YOUR PAIN HAS BEEN GONE FOR 24 HOURS, YOU MAY ADD BRATS DIET TO CLEAR LIQUIDS--BANANAS, RICE, APPLESAUCE, TOAST, SALTINES FOLLOW UP WITH YOUR DR NEXT WEEK FOR RECHECK RETURN TO ER IF WORSE All discharge instructions reviewed with patient and/or family. Voiced understanding. Scripts Hyoscyamine Sulfate (Levsin-Sl) 0.125 Mg Tab.subl 1-2 TAB SL Q4H for Abdominal Pain, #15 TAB Prov: FARZANA GARNER DO 12/10/18 Pantoprazole Sodium (Protonix) 40 Mg Tablet.dr 40 MG PO DAILY, #15 TAB Prov: FARZANA GARNER DO 12/10/18 Sucralfate (Carafate) 1 Gm Tablet 1 GM PO QIDACHS, #60 TAB Prov: FARZANA GARNER DO 12/10/18 Ondansetron (Ondansetron Odt) 4 Mg Tab.rapdis 4 MG PO Q4H for Nausea/Vomiting, #10 TAB Prov: FARZANA GARNER DO 12/10/18 FARZANA GARNER DO Dec 10, 2018 18:24
[2018-12-10] MEDS ORDERED: ONDANSETRON 4 MG/2 ML (SDV) Z0FRAN IVP ONE (18:30)
--- NOTE | 2018-12-10 18:36 | NUR ---
Dustin knight in ED - 12/10/18 at 1848 by PMCCLURE INCENTIVE SPIROMETER TAUGHT BY RT.
[2018-12-10 18:43] LABS: BILIRUBIN,URINE NEGATIVE (NEGATIVE); CLARITY,URINE VERY CLOUDY; COLOR,URINE RED; GLUCOSE, URINE (UA) NEGATIVE (NEGATIVE); KETONES,URINE NEGATIVE (NEGATIVE); LEUKOCYTE ESTERASE ,URINE 1+ (NEGATIVE); NITRITE,URINE NEGATIVE (NEGATIVE); PH,URINE 7 (5-9); PROTEIN,URINE 2+ (NEGATIVE); UROBILINOGEN,URINE NORMAL (NORMAL)
[2018-12-10 18:45] LABS: ALANINE AMINOTRANSFERASE 38 U/L (0-55); ALBUMIN 4.3 GM/DL (3.2-4.5); ALKALINE PHOSPHATASE 129 U/L (40-136); AMYLASE 62 U/L (25-125); BILIRUBIN,TOTAL 0.2 MG/DL (0.1-1.0); BUN/CREATININE RATIO 17; CALCIUM 9.4 MG/DL (8.5-10.1); CARBON DIOXIDE 23 MMOL/L (21-32); CHLORIDE 105 MMOL/L (98-107); CREATININE SERUM 0.66 MG/DL (0.60-1.30); GFR ESTIMATED > 60; GLUCOSE 88 MG/DL (70-105); LIPASE 73 U/L (8-78); POTASSIUM 3.8 MMOL/L (3.6-5.0); SODIUM 138 MMOL/L (135-145); TOTAL PROTEIN 8.6 GM/DL (6.4-8.2)
[2018-12-10 18:48] LABS: BAND NEUTROPHILS 8 %; BASOPHILS % (MANUAL) 0 %; EOSINOPHILS % (MANUAL) 5 %; LYMPHOCYTES % (MANUAL) 36 %; MONOCYTES % (MANUAL) 4 %; NEUTROPHILS % (MANUAL) 47 %; RBC MORPH NORMAL
[2018-12-10 18:53] LABS: BACTERIA,URINE FEW /HPF; RBC,URINE >100 /HPF
[2018-12-10] MEDS ORDERED: KETOROLAC 30 MG/ML VIAL IVP STA (18:55)
[2018-12-10] MEDS ORDERED: PANTOPRAZOLE 40 MG (PROTONIX) VIAL IV STA (18:55)
[2018-12-10] MEDS ORDERED: HYOSCYAMINE 0.125 MG (LEVSIN) TAB SL ONE (19:00)
--- NOTE | 2018-12-10 19:37 | Diagnostic Imaging Report ---
PROCEDURE: CT urinary tract, rule out kidney stone. TECHNIQUE: Multiple contiguous axial images were obtained through the abdomen and pelvis without the use of intravenous contrast. INDICATION: Epigastric pain for 5 days COMPARISON: 11/07/2017 FINDINGS: The lung bases demonstrate dependent atelectasis. The heart is normal in size. There is no pericardial effusion. Calcified granuloma seen in the left liver. No focal liver lesions are seen. There are cholecystectomy clips. The spleen appears normal. The pancreas is normal. The adrenal glands appear normal. There are punctate calculi in the kidneys bilaterally with no hydronephrosis or obstructing calculi seen. The bowel loops are nondistended without obstruction. The appendix is normal. There is diverticulosis of the descending colon without diverticulitis. No free fluid or free air is seen. No acute osseous abnormalities seen. IMPRESSION: 1. Nonobstructing punctate calculi in the kidneys bilaterally. No hydronephrosis or obstructing calculi seen. 2. Colonic diverticulosis without diverticulitis. Dictated by: Dictated on workstation # [id number]
[2018-12-10] MEDS ORDERED: PANT40TA2 PO (19:49)
[2018-12-10] MEDS ORDERED: ONDA4TAB11 PO (19:49)
[2018-12-10] MEDS ORDERED: SUCR1TAB36 PO (19:49)
[2018-12-10] MEDS ORDERED: HYOS0.1283 SL (19:49)
--- NOTE | 2018-12-10 20:16 | Diagnostic Imaging Report ---
PATIENT HISTORY: Epigastric pain for 5 days. TECHNIQUE: Frontal view of the chest. Upright and supine frontal views of the abdomen COMPARISON: 11/07/2017 FINDINGS: Lung volumes are normal. No focal consolidation is seen. There is no pleural effusion or pneumothorax. The cardiac silhouette is stable in size. Bowel loops appear mildly prominent, without high-grade obstruction seen. Cholecystectomy clips are noted. A clip is noted at the tip of the right liver as well. There is stool in the right colon. IMPRESSION: 1. Nonspecific bowel gas pattern. The bowel loops are upper normal in size, may be due to mild ileus. No large collection of free air seen. 2. No acute pulmonary abnormality. Dictated by: Dictated on workstation # [id number]
[2018-12-10 20:35] VITALS: BP 130/87
== END 2018-12-10 20:35 | disposition home or self-care (01) ==
LOC: EDUNIT# 17:59 → ER 18:01
DX: R10.13 Epigastric pain (principal); D64.9 Anemia, unspecified; Z90.49 Acquired absence of other specified parts of digestive tract; Z98.890 Other specified postprocedural states; Z87.19 Personal history of other diseases of the digestive system; Z86.19 Personal history of other infectious and parasitic diseases; Z80.8 Family history of malignant neoplasm of other organs or systems; Z82.49 Family history of ischemic heart disease and other diseases of the circulatory system
CPT/HCPCS: 36415; 74022; 74176; 80053; 81000; 82150; 83690; 84703; 85007; 85027; 96374; 96375

== ENCOUNTER 2021-03-19 10:57 | Emergency (ER) | payer SELFPAY ==
[~2021-03-19] VITALS: Ht 147 cm; Wt 68.0 kg
[~2021-03-19 10:57] MED LIST changes: +HYOS0.1283 SL; -OMEP20CA12 PO; +OMEP20CA18 PO; +ONDA4TAB11 PO; +PANT40TA2 PO; +SUCR1TAB36 PO
[2021-03-19 11:48] LABS: BILIRUBIN,URINE NEGATIVE (NEGATIVE); CLARITY,URINE CLEAR; COLOR,URINE YELLOW; GLUCOSE, URINE (UA) NEGATIVE (NEGATIVE); KETONES,URINE NEGATIVE (NEGATIVE); LEUKOCYTE ESTERASE ,URINE TRACE (NEGATIVE); NITRITE,URINE NEGATIVE (NEGATIVE); PH,URINE 6.5 (5-9); PROTEIN,URINE NEGATIVE (NEGATIVE)
[2021-03-19 11:57] LABS: BACTERIA,URINE TRACE /HPF; RBC,URINE RARE /HPF; WBC,URINE 0-2 /HPF
[2021-03-19 11:58] LABS: SQUAMOUS EPITHELIAL CELL,UR 0-2 /HPF
--- NOTE | 2021-03-19 13:23 | ED Cough/URI ---
General Chief Complaint: Cough/Cold/Flu Symptoms Stated Complaint: FEVER,COUGH,11 WEEKS Nursing Triage Note: pt reports cough x 4 days. fever x 2 days and cramping/spotting x 2 days. pt reports she last took tyleonol at 0100 this am. pt reports she is aprox 11 weeks preg. Sepsis Screen: No Definite Risk Source: patient Exam Limitations: no limitations History of Present Illness Date Seen by Provider: Mar 19, 2021 Time Seen by Provider: 12:00 Initial Comments Patient presents ER by private conveyance from home with chief complaint of cough nausea vomiting loose stools subjective fever and left lower quadrant abdominal pain that is cramping intermittent going on since or Friday about 3 days ago. She her last dose of Tylenol was about 1 in the morning. She is approximate 11 weeks with her last menstrual period being January 15, 2021. She follows with Dr. 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 No imaging. Her pain in her abdomen started today. She is also having some spotting that started the last 2 days. No intercourse in the last couple weeks. No problems with previous pregnancies. She is a 1 aborta. Based on her LMP she would be 9 weeks 0 days Allergies and Home Medications Allergies Coded Allergies: No Known Drug Allergies (Unverified , 11/02/16) Home Medications Hyoscyamine Sulfate 0.125 Mg Tab.subl, 1-2 TAB SL Q4H Prescribed by: FARZANA GARNER on 12/10/181948 Miconazole/Skin Cleanser No.17 1 Each Kit, 1 EACH VG HS Prescribed by: ADAM SON on 03/19/21 1505 Ondansetron 4 Mg Tab.rapdis, 4 MG PO Q4H Prescribed by: FARZANA GARNER on 12/10/181948 Ondansetron 4 Mg Tab.rapdis, 4 MG PO Q6H PRN for NAUSEA/VOMITING Prescribed by: ADAM SON on 03/19/21 1512 Pantoprazole Sodium 40 Mg Tablet.dr, 40 MG PO DAILY Prescribed by: FARZANA GARNER on 12/10/181948 Sucralfate 1 Gm Tablet, 1 GM PO QIDACHS Prescribed by: FARZANA GARNER on 12/10/181948 Patient Home Medication List Home Medication List Reviewed: Yes Review of Systems Review of Systems Constitutional: chills, fever, malaise EENTM: No ear discharge, No ear pain Respiratory: No cough, No short of breath Cardiovascular: No chest pain, No palpitations Gastrointestinal: abdominal pain; No diarrhea; nausea Genitourinary: No discharge, No dysuria, No frequency, No hematuria Musculoskeletal: No back pain, No joint pain All Other Systems Reviewed Negative Unless Noted: Yes Past Vqshtyq-Qdmlct-Hhcubf Hx Patient Social History Alcohol Use: Denies Use Smoking Status: Never a Smoker 2nd Hand Smoke Exposure: No Recent Infectious Disease Expo: No Recent Hopitalizations: No Immunizations Up To Date Tetanus Booster (TDap): Less than 5yrs PED Vaccines UTD: No Date of Influenza Vaccine: Dec 21, 2015 Seasonal Allergies Seasonal Allergies: No Past Medical History Surgeries: Yes (ERCP AFTER CHOLECYSTECTOMY) Gallbladder Respiratory: No Cardiac: No Neurological: No : Yes Reproductive Disorders: No Female Reproductive Disorders: Denies Sexually Transmitted Disease: Yes (+HSV) HIV/AIDS: No Gastrointestinal: Yes (S/P JOHN AND ERCP) Chronic Diarrhea, Gall Bladder Disease Musculoskeletal: No Endocrine: No HEENT: No Cancer: No Psychosocial: No Integumentary: No Blood Disorders: Yes (ANEMIA) Adverse Reaction/Blood Tranf: No Family Medical History Cancer 19 MOTHER (SPINAL CORD CANCER?) Congenital heart disease G8 SISTER Family history: Cardiovascular disease G8 SISTER MATERNAL GRANDMOTHER Family history: Diabetes mellitus MATERNAL GRANDMOTHER Seizure disorder MATERNAL GRANDMOTHER Stroke MATERNAL GRANDMOTHER Cancer Physical Exam Vital Signs - First Documented 03/19/21 11:15 Temp 36.5 Pulse 89 Resp 18 B/P (MAP) 114/66 (82) Pulse Ox 97 O2 Delivery Room Air Capillary Refill : Less Than 3 Seconds Height: 5'3.00" Weight: 180lbs. 0.0oz. 81.976896vc; 31.00 BMI Method:Estimated General Appearance: WD/WN, mild distress Eyes: Bilateral Eye Normal Inspection, Bilateral Eye PERRL, Bilateral Eye EOMI HEENT: PERRL/EOMI, pharynx normal Neck: full range of motion, normal inspection Respiratory: lungs clear, normal breath sounds, no respiratory distress, no accessory muscle use Cardiovascular: normal peripheral pulses, regular rate, rhythm Gastrointestinal: normal bowel sounds (Active, normal), soft, tenderness (Left lower quadrant very tender to palpation without mesenteric signs, Rovsing sign, psoas sign) Genital/Rectal: normal genital exam, other (Small drop of blood in the vagina with a closed, parous cervical os with mucous plug.) Extremities: non-tender, normal inspection, normal capillary refill Neurologic/Psychiatric: alert, oriented x 3 Progress/Results/Core Measures Suspected Sepsis Recent Fever Within 48 Hours: Yes Infection Criteria Present: Suspected New Infection New/Unexplained Altered Menta: No Sepsis Screen: No Definite Risk SIRS Temperature: Pulse: 89 Respiratory Rate: 18 Laboratory Tests 03/19/21 11:34: White Blood Count 11.6H Blood Pressure 114 /66 Mean: 82 Laboratory Tests 03/19/21 11:34: Creatinine 0.59L, Platelet Count 445H, Total Bilirubin 0.2 Results/Orders Lab Results Laboratory Tests Test 03/19/21 11:22 03/19/21 11:30 03/19/21 11:34 03/19/21 13:42 Range/Units Coronavirus 2019 (CANDIDO) Not Detected Not Detecte Urine Color YELLOW Urine Clarity CLEAR Urine pH 6.5 5-9 Urine Specific [place] 1.010 L 1.016-1.022 Urine Protein NEGATIVE NEGATIVE Urine Glucose (UA) NEGATIVE NEGATIVE Urine Ketones NEGATIVE NEGATIVE Urine Nitrite NEGATIVE NEGATIVE Urine Bilirubin NEGATIVE NEGATIVE Urine Urobilinogen 0.2 < = 1.0 MG/DL Urine Leukocyte Esterase TRACE H NEGATIVE Urine RBC (Auto) TRACE-I NEGATIVE Urine RBC RARE /HPF Urine WBC 0-2 /HPF Urine Squamous Epithelial Cells 0-2 /HPF Urine Crystals NONE /LPF Urine Bacteria TRACE /HPF Urine Casts NONE /LPF Urine Mucus NEGATIVE /LPF Urine Culture Indicated NO White Blood Count 11.6 H 4.3-11.0 10^3/uL Red Blood Count 4.49 3.80-5.11 10^6/uL Hemoglobin 13.8 11.5-16.0 g/dL Hematocrit 42 35-52 % Mean Corpuscular Volume 92 80-99 fL Mean Corpuscular Hemoglobin 31 25-34 pg Mean Corpuscular Hemoglobin Concent 33 32-36 g/dL Red Cell Distribution Width 13.2 10.0-14.5 % Platelet Count 445 H 130-400 10^3/uL Mean Platelet Volume 9.3 9.0-12.2 fL Immature Granulocyte % (Auto) 0 % Neutrophils (%) (Auto) 64 42-75 % Lymphocytes (%) (Auto) 25 12-44 % Monocytes (%) (Auto) 6 0-12 % Eosinophils (%) (Auto) 5 0-10 % Basophils (%) (Auto) 0 0-10 % Neutrophils # (Auto) 7.4 1.8-7.8 10^3/uL Lymphocytes # (Auto) 2.9 1.0-4.0 10^3/uL Monocytes # (Auto) 0.7 0.0-1.0 10^3/uL Eosinophils # (Auto) 0.6 H 0.0-0.3 10^3/uL Basophils # (Auto) 0.1 0.0-0.1 10^3/uL Immature Granulocyte # (Auto) 0.0 0.0-0.1 10^3/uL Sodium Level 135 135-145 MMOL/L Potassium Level 3.7 3.6-5.0 MMOL/L Chloride Level 103 98-107 MMOL/L Carbon Dioxide Level 21 21-32 MMOL/L Anion Gap 11 5-14 MMOL/L Blood Urea Nitrogen 6 L 7-18 MG/DL Creatinine 0.59 L 0.60-1.30 MG/DL Estimat Glomerular Filtration Rate > 60 BUN/Creatinine Ratio 10 Glucose Level 87 70-105 MG/DL Calcium Level 9.0 8.5-10.1 MG/DL Corrected Calcium 9.2 8.5-10.1 MG/DL Total Bilirubin 0.2 0.1-1.0 MG/DL Aspartate Amino Transf (AST/SGOT) 15 5-34 U/L Alanine Aminotransferase (ALT/SGPT) 15 0-55 U/L Alkaline Phosphatase 94 40-136 U/L Total Protein 7.7 6.4-8.2 GM/DL Albumin 3.8 3.2-4.5 GM/DL Human Chorionic Gonadotropin, Quant [id number] H <5 MIU/ML Micro Results Microbiology 03/19/21 Wet Prep - Final, Complete 03/19/21 Influenza Types A,B Antigen (HIGINIO) - Final, Complete My Orders Orders - ADAM SON Ua Culture If Indicated (03/19/21 11:02) Urine Bedside (03/19/21 11:02) Covid 19 Inhouse Test (03/19/21 12:24) Influenza A And B Antigens (03/19/21 12:24) Cbc With Automated Diff (03/19/21 13:16) Comprehensive Metabolic Panel (03/19/21 13:16) Chest 1 View, Ap/Pa Only (03/19/21 13:16) Ed Iv/Invasive Line Start (03/19/21 13:16) Lactated Ringers (Lr 1000 Ml Iv Solution (03/19/21 13:30) Ondansetron Injection (Zofran Injectio (03/19/21 13:30) Acetaminophen Tablet (Tylenol Tablet) (03/19/21 13:30) Wet Prep (03/19/21 13:26) Neisseria Gonorrhea Swab (03/19/21 13:26) Chlamydia Trachomatis Swab (03/19/21 13:26) Us Ob Single Fetus<14 [id number] (03/19/21 13:16) Ceftriaxone For Iv Use (Rocephin For I (03/19/21 15:15) Azithromycin Tablet (Zithromax Tablet) (03/19/21 15:15) Hcg,Quantitative (03/19/21 15:05) Medications Given in ED Current Medications Medications Dose Ordered Sig/Sunny Route Start Time Stop Time Status Last Admin Dose Admin Acetaminophen 1,000 mg ONCE ONCE PO 03/19/21 13:30 03/19/21 13:31 DC 03/19/21 13:40 1,000 MG Azithromycin 1,000 mg ONCE ONCE PO 03/19/21 15:15 03/19/21 15:16 DC 03/19/21 15:25 1,000 MG Ceftriaxone Sodium 1000 mg/ Sterile Water 10 ml @ 200 mls/hr ONCE ONCE IV 03/19/21 15:15 03/19/21 15:17 DC 03/19/21 15:25 200 MLS/HR Lactated Ringer's 1,000 ml @ 0 mls/hr Q0M ONCE IV 03/19/21 13:30 03/19/21 13:31 DC 03/19/21 13:40 0 MLS/HR Ondansetron HCl 4 mg ONCE ONCE IVP 03/19/21 13:30 03/19/21 13:31 DC 03/19/21 13:40 4 MG Vital Signs/I&O 03/19/21 03/19/21 03/19/21 11:15 11:15 15:38 Temp 36.5 Pulse 89 80 Resp 18 20 B/P (MAP) 114/66 (82) 120/64 Pulse Ox 97 98 O2 Delivery Room Air Capillary Refill : Less Than 3 Seconds Blood Pressure Mean: 82 Progress Note : Time: 13:44 Progress Note Pelvic exam unrevealing. We did get a wet prep as well as GC, chlamydia. We are getting an ultrasound because of her significant abdominal pain and unknown location of the fetus. Tylenol was offered for her pain. Her influenza and Covid are negative. Suspect a viral syndrome. Blood and urine sent for. Diagnostic Imaging Diagonstic Imaging: Ultrasound Plain Films/CT/US/NM/MRI: pelvis Comments [facility], [place] NAME: PAPI MURRAY REC#: [id number] PT STATUS: REG ER : 1990 PHYSICIAN: ADAM SON MD ADMIT DATE: 03/19/21/ER Draft Date of Exam:03/19/21 US OB SINGLE FETUS<14 [id number] PROCEDURE: US OB SINGLE FETUS <14 WKS. TECHNIQUE: Multiple real-time grayscale images were obtained over the gravid uterus in various projections. INDICATION: Bleeding during . COMPARISON: None available. FINDINGS: There is a gestational sac with a normal morphology appropriately positioned within the uterus. Within the gestational sac there is a normal-appearing yolk sac. Additionally, there is a pole with a crown-rump length of 2.3 cm giving an ultrasound age of 9 weeks 1 day. This corresponds to an estimated due date of 10/21/2021. heart rate is detected at 161 bpm. No virgen-gestational hemorrhage. Both adnexa are imaged and demonstrate no concerning abnormality. However, the ovaries are not appreciated. IMPRESSION: 1. Single live intrauterine . 2. No virgen-gestational hemorrhage. Dictated on workstation # [id number] Dict: 03/19/21 1432 Trans: 03/19/21 1435 [facility] [id number] Interpreted by: FLOR YOUSSEF MD Electronically signed by: Reviewed: Reviewed by Me Diagonstic Imaging: Xray Plain Films/CT/US/NM/MRI: chest Comments NAME: PAPI MURRAY REC#: [id number] PT STATUS: REG ER : 1990 PHYSICIAN: ADAM SON MD ADMIT DATE: 03/19/21/ER Draft Date of Exam:03/19/21 CHEST 1 VIEW, AP/PA ONLY INDICATION: Cough, fever COMPARISON: 12/10/2018 FINDINGS: The lungs are clear. There is no failure, effusion or pneumothorax. IMPRESSION: Normal frontal chest. Dictated on workstation # [id number] Dict: 03/19/21 1456 Trans: 03/19/21 1458 [facility] [id number] Interpreted by: AVERY NICE Electronically signed by: Reviewed: Reviewed by Me Departure Impression Primary Impression: Vaginal bleeding in Additional Impressions: Viral syndrome Yeast infection involving the vagina and surrounding area Disposition: HOME, SELF-CARE Condition: Stable Departure-Patient Inst. Decision time for Depature: 15:01 Referrals: ESTRADA RAYGOZA MD (PCP/Family) Primary Care Physician Patient Instructions: Viral Syndrome (DC) Add. Discharge Instructions: Not sure precisely what is causing your symptoms but I suspect it is a virus. Drink plenty of fluids and use Tylenol as necessary for body aches, fever or pain. The ultrasound of your pelvis looks normal. You need to establish care with a meat grading machine operator and follow-up in the next couple weeks. If your symptoms worsen you should return to the ER. Nothing in the vagina until you are cleared by your doctor. All discharge instructions reviewed with patient and/or family. Voiced understanding. Scripts Ondansetron (Ondansetron Odt) 4 Mg Tab.rapdis 4 MG PO Q6H PRN for NAUSEA/VOMITING, #8 TAB 0 Refills Prov: ADAM SON 03/19/21 Miconazole/Skin Cleanser No.17 (Miconazole 3 Kit) 1 Each Kit 1 EACH VG HS for 3 Days, #1 KIT 0 Refills Prov: ADAM SON 03/19/21 Work/School Note: Work Release Form Date Seen in the Emergency Department: Mar 19, 2021 Return to Work: Mar 20, 2021 Restrictions: No Restrictions Copy Copies To 1: DANY FORTUNE TITUS J Mar 19, 2021 13:23
[2021-03-19] MEDS ORDERED: LACTATED RINGERS 1,000 ML IV ONE (13:30)
[2021-03-19] MEDS ORDERED: ONDANSETRON 4 MG/2 ML (SDV) Z0FRAN IVP ONE (13:30)
[2021-03-19] MEDS ORDERED: ACETAMINOPHEN 500 MG TAB (TYLENOL) PO ONE (13:30)
[2021-03-19 13:40] LABS: BASOPHILS # (AUTO) 0.1 10^3/uL (0.0-0.1); BASOPHILS % (AUTO) 0 % (0-10); EOSINOPHILS # (AUTO) 0.6 10^3/uL (0.0-0.3); EOSINOPHILS % (AUTO) 5 % (0-10); HEMATOCRIT 42 % (35-52); HEMOGLOBIN 13.8 g/dL (11.5-16.0); LYMPHOCYTES # (AUTO) 2.9 10^3/uL (1.0-4.0); LYMPHOCYTES % (AUTO) 25 % (12-44); MEAN CORPUSCULAR HEMOGLOBIN 31 pg (25-34); MEAN CORPUSCULAR HGB CONC 33 g/dL (32-36); MEAN CORPUSCULAR VOLUME 92 fL (80-99); MEAN PLATELET VOLUME 9.3 fL (9.0-12.2); MONOCYTES # (AUTO) 0.7 10^3/uL (0.0-1.0); MONOCYTES % (AUTO) 6 % (0-12); NEUTROPHILS # (AUTO) 7.4 10^3/uL (1.8-7.8); NEUTROPHILS % (AUTO) 64 % (42-75); PLATELET COUNT 445 10^3/uL (130-400); WHITE BLOOD COUNT 11.6 10^3/uL (4.3-11.0)
[2021-03-19 13:45] LABS: ALBUMIN 3.8 GM/DL (3.2-4.5); CHLORIDE 103 MMOL/L (98-107); POTASSIUM 3.7 MMOL/L (3.6-5.0); SODIUM 135 MMOL/L (135-145)
[2021-03-19 13:47] LABS: GLUCOSE 87 MG/DL (70-105)
[2021-03-19 13:48] LABS: TOTAL PROTEIN 7.7 GM/DL (6.4-8.2)
[2021-03-19 13:49] LABS: BILIRUBIN,TOTAL 0.2 MG/DL (0.1-1.0); CARBON DIOXIDE 21 MMOL/L (21-32)
[2021-03-19 13:51] LABS: ALKALINE PHOSPHATASE 94 U/L (40-136); CREATININE SERUM 0.59 MG/DL (0.60-1.30); GFR ESTIMATED > 60
[2021-03-19 13:52] LABS: BUN/CREATININE RATIO 10
[2021-03-19 13:54] LABS: ALANINE AMINOTRANSFERASE 15 U/L (0-55)
--- NOTE | 2021-03-19 14:36 | Diagnostic Imaging Report ---
PROCEDURE: US OB SINGLE FETUS <14 WKS. TECHNIQUE: Multiple real-time grayscale images were obtained over the gravid uterus in various projections. INDICATION: Bleeding during . COMPARISON: None available. FINDINGS: There is a gestational sac with a normal morphology appropriately positioned within the uterus. Within the gestational sac there is a normal-appearing yolk sac. Additionally, there is a pole with a crown-rump length of 2.3 cm giving an ultrasound age of 9 weeks 1 day. This corresponds to an estimated due date of 10/21/2021. heart rate is detected at 161 bpm. No virgen-gestational hemorrhage. Both adnexa are imaged and demonstrate no concerning abnormality. However, the ovaries are not appreciated. IMPRESSION: 1. Single live intrauterine . 2. No virgen-gestational hemorrhage. Dictated by: Dictated on workstation # [id number]
--- NOTE | 2021-03-19 14:58 | Diagnostic Imaging Report ---
INDICATION: Cough, fever COMPARISON: 12/10/2018 FINDINGS: The lungs are clear. There is no failure, effusion or pneumothorax. IMPRESSION: Normal frontal chest. Dictated by: Dictated on workstation # [id number]
[2021-03-19] MEDS ORDERED: MICO1KIT18 VG (15:05)
[2021-03-19] MEDS ORDERED: ONDA4TAB11 PO (15:12)
[2021-03-19] MEDS ORDERED: AZITHROMYCIN 250 MG TAB (ZITHROMAX) PO ONE (15:15)
[2021-03-19] MEDS ORDERED: cefTRIAXone FOR IV USE 1,000 MG in WATER (STERILE) FOR INJECTION 10 ML IV ONE (15:15)
[2021-03-19 15:38] VITALS: BP 120/64
== END 2021-03-19 15:38 | disposition home or self-care (01) ==
LOC: EDUNIT# 10:57 → ER 11:00
DX: O20.9 Hemorrhage in early pregnancy, unspecified (principal); O23.591 Infection of other part of genital tract in pregnancy, first trimester; B37.3 Candidiasis of vulva and vagina; O98.511 Other viral diseases complicating pregnancy, first trimester; B34.9 Viral infection, unspecified; Z20.822 Contact with and (suspected) exposure to COVID-19; Z3A.09 9 weeks gestation of pregnancy
CPT/HCPCS: 71045; 76801; 80053; 81000; 84702; 85025; 87210; 87491; 87591; 87804; 99284; U0002; 36415; 87635

== ENCOUNTER 2021-03-20 15:00 | Emergency (ER) | payer SELFPAY ==
[~2021-03-20] VITALS: Ht 157 cm; Wt 80.7 kg
[~2021-03-20 15:00] MED LIST changes: +ACYC-108 PO; -ACYC200C PO; +MICO1KIT18 VG
[2021-03-20 15:25] VITALS: BP 128/87
--- NOTE | 2021-03-20 15:52 | ED GU-Female ---
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 She is having a little bit of pressure in her pelvis and some discomfort around her waist. Patient was seen for similar complaints yesterday and had an extensive work-up including blood work, Covid and flu testing, chest x-ray and OB ultrasound. Patient was noted to have a single live intrauterine at approximately 9 weeks. No evidence of bleeding around the placenta. Patient had a urine test done yesterday that was also clean of infection. She is O+ per review of the medical record. Patient continues to complain of cough and congestion. She is not had any subjective fever in the last 24 hours and has not taken any Tylenol. Patient was just concerned because when she wipes she still has a little bit of bright red blood per vagina. She denies any specific uterine cramping. She is a abortus. All other review of systems reviewed and negative except as stated. Nursing provides interpretation. Timing/Duration: this afternoon Severity/Quality: mild Location: generalized flank Radiation: other (Pelvic pressure) Activities at Onset: none Prior Genitourinary Problems: none Allergies and Home Medications Allergies Coded Allergies: No Known Drug Allergies (Unverified , 11/02/16) Home Medications Hyoscyamine Sulfate 0.125 Mg Tab.subl, 1-2 TAB SL Q4H Prescribed by: FARZANA GARNER on 12/10/181948 Miconazole/Skin Cleanser No.17 1 Each Kit, 1 EACH VG HS Prescribed by: ADAM SON on 03/19/21 1505 Ondansetron 4 Mg Tab.rapdis, 4 MG PO Q4H Prescribed by: FARZANA GARNER on 12/10/181948 Ondansetron 4 Mg Tab.rapdis, 4 MG PO Q6H PRN for NAUSEA/VOMITING Prescribed by: ADAM SON on 03/19/21 1512 Pantoprazole Sodium 40 Mg Tablet.dr, 40 MG PO DAILY Prescribed by: FARZANA GARNER on 12/10/181948 Sucralfate 1 Gm Tablet, 1 GM PO QIDACHS Prescribed by: FARZANA GARNER on 12/10/181948 Patient Home Medication List Home Medication List Reviewed: Yes Review of Systems Review of Systems Constitutional: see HPI EENTM: no symptoms reported Respiratory: cough Cardiovascular: no symptoms reported Gastrointestinal: no symptoms reported : Yes LMP: Jan 15, 2021 Musculoskeletal: back pain Skin: no symptoms reported Psychiatric/Neurological: No Symptoms Reported All Other Systemes Reviewed Negative Unless Noted: Yes Past Wxygyho-Wdmayb-Eqxcnh Hx Patient Social History Alcohol Use: Denies Use Smoking Status: Never a Smoker 2nd Hand Smoke Exposure: No Recent Hopitalizations: No Immunizations Up To Date Tetanus Booster (TDap): Less than 5yrs PED Vaccines UTD: No Date of Influenza Vaccine: Dec 21, 2015 Seasonal Allergies Seasonal Allergies: No Past Medical History Surgeries: Yes (ERCP AFTER CHOLECYSTECTOMY) Gallbladder Respiratory: No Cardiac: No Neurological: No Reproductive Disorders: No Female Reproductive Disorders: Denies Sexually Transmitted Disease: Yes (+HSV) HIV/AIDS: No Gastrointestinal: Yes (S/P JHON AND ERCP) Chronic Diarrhea, Gall Bladder Disease Musculoskeletal: No Endocrine: No HEENT: No Cancer: No Psychosocial: No Integumentary: No Blood Disorders: Yes (ANEMIA) Adverse Reaction/Blood Tranf: No Family Medical History Cancer 19 MOTHER (SPINAL CORD CANCER?) Congenital heart disease G8 SISTER Family history: Cardiovascular disease G8 SISTER MATERNAL GRANDMOTHER Family history: Diabetes mellitus MATERNAL GRANDMOTHER Seizure disorder MATERNAL GRANDMOTHER Stroke MATERNAL GRANDMOTHER Cancer Physical Exam Vital Signs Capillary Refill : Height, Weight, BMI Height: 5'3.00" Weight: 180lbs. 0.0oz. 81.533364ch; 31.00 BMI Method:Estimated General Appearance: WD/WN, no apparent distress Neck: full range of motion Cardiovascular: regular rate, rhythm Respiratory: lungs clear, normal breath sounds, no respiratory distress, no accessory muscle use Gastrointestinal: non tender, soft; No distended, No guarding, No rebound, No tenderness Pelvic: other (deferred) Extremities: non-tender, normal inspection, no pedal edema Neurologic/Psychiatric: no motor/sensory deficits, alert, normal mood/affect, oriented x 3 Skin: normal color, warm/dry Progress/Results/Core Measures Suspected Sepsis SIRS Temperature: Pulse: Respiratory Rate: Blood Pressure / Mean: Results/Orders Vital Signs/I&O Capillary Refill : Progress Note : Time: 15:53 Progress Note Patient seen and examined, she just wanted to double check as her vaginal bleeding had persisted. Patient has not made an appointment yet with an OB provider. Patient is not having any increased amount of pelvic pain just some pressure around her waistline. No actual dysuria, urgency or frequency. Again labs and imaging from yesterday were reviewed. Patient had a normal chest x-ray and a normal first trimester ultrasound. No evidence of subchorionic hemorrhage was identified. Patient's labs were normal her flu test was negative as was her Covid test. She was diagnosed with a viral syndrome and threatened miscarriage. Patient is strongly encouraged again to follow-up with an OB provider sooner rather than later. Nothing per vagina until she follows up. Patient did decline a repeat vaginal examination at this visit. Nursing cluster bore operator was used to facilitate discussion with the patient. All questions are sought and answered. Patient is advised to take [id number] Mucinex as needed for her cough/congestion. Tylenol for discomfort. Departure Impression Primary Impression: Threatened in early Disposition: 01 HOME, SELF-CARE Condition: Stable Departure-Patient Inst. Decision time for Depature: 15:54 Referrals: ESTRADA RAYGOZA MD (PCP/Family) Primary Care Physician Patient Instructions: Threatened Miscarriage (DC) Add. Discharge Instructions: Drink plenty of fluids to stay well-hydrated. Take 2 extra strength Tylenol, 500 mg tablets every 4 hours as needed for discomfort/pain. Use [id number] Mucinex as needed for cough, this will thin your sputum and make it easier to clear. You can also use warm tea with honey and lemon for your cough. Please follow-up as soon as possible with an OB provider. BENJAMÍN WARD MD Mar 20, 2021 15:52
== END 2021-03-20 15:56 | disposition home or self-care (01) ==
LOC: EDUNIT# 15:00 → ER 15:01
DX: O20.0 Threatened abortion (principal); Z3A.09 9 weeks gestation of pregnancy
CPT/HCPCS: 99282

== ENCOUNTER 2021-05-13 22:48 | Emergency (ER) | payer OTHER ==
[~2021-05-13] VITALS: Ht 147 cm; Wt 75.0 kg
[2021-05-13 22:55] VITALS: BP 102/67
[2021-05-13] MEDS ORDERED: PRD20T PO (23:12)
[2021-05-13] MEDS ORDERED: MUPI22OI2 TP (23:12)
--- NOTE | 2021-05-13 23:12 | ED Integumentary General ---
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 RAYGOZA/ [facility] Allergies and Home Medications Allergies Coded Allergies: No Known Drug Allergies (Unverified , 11/02/16) Home Medications Hyoscyamine Sulfate 0.125 Mg Tab.subl, 1-2 TAB SL Q4H Prescribed by: FARZANA GARNER on 12/10/181948 Miconazole/Skin Cleanser No.17 1 Each Kit, 1 EACH VG HS Prescribed by: ADAM SON on 03/19/21 1505 Mupirocin 22 Gm Oint...g., 22 GM TP BID Prescribed by: FARZANA GARNER on 05/13/21 2312 Ondansetron 4 Mg Tab.rapdis, 4 MG PO Q4H Prescribed by: FARZANA GARNER on 12/10/181948 Ondansetron 4 Mg Tab.rapdis, 4 MG PO Q6H PRN for NAUSEA/VOMITING Prescribed by: ADAM SON on 03/19/21 1512 Pantoprazole Sodium 40 Mg Tablet.dr, 40 MG PO DAILY Prescribed by: FARZANA GARNER on 12/10/181948 Prednisone 20 Mg Tab, 40 MG PO DAILY Prescribed by: FARZANA GARNER on 05/13/21 231 Sucralfate 1 Gm Tablet, 1 GM PO QIDACHS Prescribed by: FARZANA GARNER on 12/10/181948 Patient Home Medication List Home Medication List Reviewed: Yes Review of Systems Review of Systems Constitutional: no symptoms reported : Yes Musculoskeletal: see HPI Skin: see HPI Psychiatric/Neurological: No Symptoms Reported Past Qbgtiqv-Pzmben-Eeatia Hx Past Med/Social Hx: Reviewed and Corrections made Patient Social History Alcohol Use: Denies Use Drug of Choice: DENIES Smoking Status: Never a Smoker 2nd Hand Smoke Exposure: No Recent Hopitalizations: No Immunizations Up To Date Tetanus Booster (TDap): Less than 5yrs PED Vaccines UTD: No Date of Influenza Vaccine: Dec 21, 2015 Seasonal Allergies Seasonal Allergies: No Past Medical History Surgeries: Yes (ERCP AFTER CHOLECYSTECTOMY) Gallbladder Respiratory: No Cardiac: No Neurological: No Hx : 5 Reproductive Disorders: No Female Reproductive Disorders: Denies Sexually Transmitted Disease: Yes (+HSV) HIV/AIDS: No Gastrointestinal: Yes (S/P JOHN AND ERCP) Chronic Diarrhea, Gall Bladder Disease Musculoskeletal: No Endocrine: No HEENT: No Cancer: No Psychosocial: No Integumentary: No Blood Disorders: Yes (ANEMIA) Adverse Reaction/Blood Tranf: No Family Medical History Cancer 19 MOTHER (SPINAL CORD CANCER?) Congenital heart disease G8 SISTER Family history: Cardiovascular disease G8 SISTER MATERNAL GRANDMOTHER Family history: Diabetes mellitus MATERNAL GRANDMOTHER Seizure disorder MATERNAL GRANDMOTHER Stroke MATERNAL GRANDMOTHER Cancer Physical Exam Vital Signs Capillary Refill : General Appearance: WD/WN, no apparent distress, obese Extremities: other (RIGHT POSTERIOR THIGH WITH 3 X 4 CM AREA OF ERYTHEMA, WITH MULTIPLE CENTRAL VESICLES. NO DRAINAGE. NO PURULENCE, NO STREAKS. NO OTHER SIMILAR LESIONS. ) Neurologic/Psychiatric: no motor/sensory deficits, alert, normal mood/affect Skin: normal color (PT IS ), warm/dry, other ( ABOVE) Progress/Results/Core Measures Results/Orders My Orders Orders - FARZANA GARNER DO Prednisone Tablet (Deltasone Tablet) (05/13/21 23:15) Departure Impression Primary Impression: VESICULAR RASH RIGHT POSTERIOR THIGH Additional Impression: REPORTED INSECT BITE Disposition: 01 HOME, SELF-CARE Condition: Stable Departure-Patient Inst. Decision time for Depature: 23:10 Referrals: ESTRADA RAYGOZA MD (PCP/Family) Primary Care Physician Patient Instructions: Insect Bites and Stings (DC) Add. Discharge Instructions: TYLENOL NEEDED FOR PAIN APPLY ANTIBIOTIC OINTMENT AND DRESSING TO AREA TWICE A DAY FOLLOW UP WITH YOUR DR IN 2-3 DAYS FOR FURTHER CARE All discharge instructions reviewed with patient and/or family. Voiced understanding. Scripts Mupirocin (Mupirocin) 22 Gm Oint...g. 22 GM TP BID, #1 TUBE Prov: FARZANA GARNER DO 05/13/21 Prednisone (Prednisone) 20 Mg Tab 40 MG PO DAILY, #4 TAB 0 Refills Prov: FARZANA GARNER DO 05/13/21 FARZANA GARNER DO May 13, 2021 23:12
[2021-05-13] MEDS ORDERED: predniSONE 20 MG TAB PO ONE (23:15)
== END 2021-05-13 23:21 | disposition home or self-care (01) ==
LOC: EDUNIT# 22:48 → ER 22:51
DX: O99.712 Diseases of the skin and subcutaneous tissue complicating pregnancy, second trimester (principal); S70.361A Insect bite (nonvenomous), right thigh, initial encounter; E66.9 Obesity, unspecified; Z3A.18 18 weeks gestation of pregnancy; W57.XXXA Bitten or stung by nonvenomous insect and other nonvenomous arthropods, initial encounter

== ENCOUNTER 2021-09-18 17:50 | Outpatient (CLI) | payer OTHER ==
[~2021-09-18] VITALS: Ht 147 cm; Wt 85.7 kg
[~2021-09-18 17:50] MED LIST changes: +MUPI22OI2 TP; +PRD20T PO
[2021-09-18 18:16] VITALS: BP 117/63
[2021-09-18 18:21] VITALS: BP 117/63
[2021-09-18 18:41] LABS: BASOPHILS % (AUTO) 0 % (0-10); EOSINOPHILS # (AUTO) 0.1 10^3/uL (0.0-0.3); EOSINOPHILS % (AUTO) 1 % (0-10); HEMATOCRIT 33 % (35-52); HEMOGLOBIN 10.8 g/dL (11.5-16.0); LYMPHOCYTES # (AUTO) 3.1 10^3/uL (1.0-4.0); LYMPHOCYTES % (AUTO) 34 % (12-44); MEAN CORPUSCULAR HEMOGLOBIN 28 pg (25-34); MEAN CORPUSCULAR HGB CONC 33 g/dL (32-36); MEAN CORPUSCULAR VOLUME 85 fL (80-99); MEAN PLATELET VOLUME 9.9 fL (9.0-12.2); MONOCYTES # (AUTO) 0.7 10^3/uL (0.0-1.0); MONOCYTES % (AUTO) 8 % (0-12); NEUTROPHILS # (AUTO) 5.1 10^3/uL (1.8-7.8); NEUTROPHILS % (AUTO) 57 % (42-75); PLATELET COUNT 345 10^3/uL (130-400); WHITE BLOOD COUNT 9.1 10^3/uL (4.3-11.0)
[2021-09-18 18:45] VITALS: BP 101/59
[2021-09-18 18:55] LABS: ALBUMIN 3.1 GM/DL (3.2-4.5)
[2021-09-18 18:56] LABS: POTASSIUM 3.7 MMOL/L (3.6-5.0)
[2021-09-18 18:57] LABS: CALCIUM 9.4 MG/DL (8.5-10.1)
[2021-09-18 18:58] LABS: TOTAL PROTEIN 6.8 GM/DL (6.4-8.2)
[2021-09-18 19:00] LABS: BILIRUBIN,TOTAL 0.2 MG/DL (0.1-1.0)
[2021-09-18 19:02] LABS: CREATININE SERUM 0.58 MG/DL (0.60-1.30)
[2021-09-18 19:05] LABS: URIC ACID 3.5 MG/DL (2.6-7.2)
[2021-09-18 19:12] VITALS: BP 102/62
[2021-09-18 19:27] VITALS: BP 110/66
[2021-09-18 19:27] LABS: URINE CREATININE FOR RATIO 23 MG/DL (30-125)
[2021-09-18 19:28] LABS: URINE PROTEIN FOR RATIO ONLY < 6 MG/DL (6-12)
[2021-09-18] MEDS ORDERED: METF-397 PO (19:36)
[2021-09-18] MEDS ORDERED: PREN-142 PO (19:36)
--- NOTE | 2021-09-19 08:36 | Physician Query-Final Dx ---
Clinic Account Progress/Dx Physician Query: Please give diagnosis Please include # weeks gestation Date of Service Sep 18, 2021 at 17:50 LEO GRAVES Sep 19, 2021 08:36
== END 2021-09-18 19:40 | disposition home or self-care (01) ==
LOC: WSo 17:50 → LDRP 17:50 → WSo 19:40
PROVIDERS: ATTEND Family Medicine
DX: Z34.93 Encounter for supervision of normal pregnancy, unspecified, third trimester (principal); Z3A.35 35 weeks gestation of pregnancy
CPT/HCPCS: 36415; 80053; 82570; 83615; 84156; 84550; 85025

== ENCOUNTER 2021-10-05 12:13 | Outpatient (CLI) | payer OTHER ==
[~2021-10-05] VITALS: Ht 149 cm; Wt 86.6 kg
[~2021-10-05 12:13] MED LIST changes: +METF-397 PO; +PREN-142 PO
[2021-10-05 12:50] VITALS: BP 117/70
[2021-10-05 13:02] LABS: BILIRUBIN,URINE NEGATIVE (NEGATIVE); CLARITY,URINE CLEAR; COLOR,URINE YELLOW; GLUCOSE, URINE (UA) NEGATIVE (NEGATIVE); KETONES,URINE NEGATIVE (NEGATIVE); LEUKOCYTE ESTERASE ,URINE NEGATIVE (NEGATIVE); NITRITE,URINE NEGATIVE (NEGATIVE); PROTEIN,URINE NEGATIVE (NEGATIVE)
[2021-10-05 13:23] LABS: BACTERIA,URINE FEW /HPF; WBC,URINE 0-2 /HPF
[2021-10-05] MEDS ORDERED: SERT25TA PO (14:09)
[2021-10-05] MEDS ORDERED: HYDR-3584 PO (14:19)
[2021-10-05] MEDS ORDERED: VALA500T7 PO (14:20)
--- NOTE | 2021-10-08 08:37 | Physician Query-Final Dx ---
Clinic Account Progress/Dx Physician Query: Please give diagnosis Please include # weeks gestation Date of Service Oct 05, 2021 at 12:13 KASSIDY SMIHT Oct 08, 2021 08:37
== END 2021-10-05 14:27 | disposition home or self-care (01) ==
LOC: WSo 12:13 → LDRP 12:14 → WSo 14:27
PROVIDERS: ATTEND Family Medicine
DX: O26.893 Other specified pregnancy related conditions, third trimester (principal); R51.9 Headache, unspecified; Z3A.37 37 weeks gestation of pregnancy
CPT/HCPCS: 81000; G0463; 99213

== ENCOUNTER 2021-10-15 06:06 | Inpatient (IN) | payer OTHER ==
[~2021-10-15] VITALS: Ht 150 cm; Wt 86.8 kg
[2021-10-15] VITALS (38 sets, daily range): BP systolic 110–193; BP diastolic 57–99
[~2021-10-15 06:06] MED LIST changes: +HYDR-3584 PO; +SERT25TA PO; +VALA500T7 PO
[2021-10-15] MEDS ORDERED: NS IV 1000 ML 1,000 ML IV SCH (06:15)
[2021-10-15] MEDS ORDERED: MINERAL OIL CONCENTRATE 99.9% 15 ML UDC TOP PRN (06:15)
[2021-10-15] MEDS: OXYTOCIN PRE-MIX DRIP 500 ML IV SCH ×2 (07:39→16:24)
[2021-10-15 07:46] LABS: BASOPHILS % (AUTO) 0 % (0-10); EOSINOPHILS # (AUTO) 0.1 10^3/uL (0.0-0.3); EOSINOPHILS % (AUTO) 1 % (0-10); HEMATOCRIT 33 % (35-52); HEMOGLOBIN 11.2 g/dL (11.5-16.0); LYMPHOCYTES # (AUTO) 3.4 10^3/uL (1.0-4.0); LYMPHOCYTES % (AUTO) 39 % (12-44); MEAN CORPUSCULAR HEMOGLOBIN 28 pg (25-34); MEAN CORPUSCULAR HGB CONC 34 g/dL (32-36); MEAN CORPUSCULAR VOLUME 81 fL (80-99); MEAN PLATELET VOLUME 10.9 fL (9.0-12.2); MONOCYTES # (AUTO) 0.7 10^3/uL (0.0-1.0); MONOCYTES % (AUTO) 8 % (0-12); NEUTROPHILS # (AUTO) 4.6 10^3/uL (1.8-7.8); NEUTROPHILS % (AUTO) 52 % (42-75); PLATELET COUNT 321 10^3/uL (130-400); WHITE BLOOD COUNT 8.8 10^3/uL (4.3-11.0)
[2021-10-15 07:52] LABS: BILIRUBIN,URINE NEGATIVE (NEGATIVE); CLARITY,URINE CLEAR; COLOR,URINE YELLOW; GLUCOSE, URINE (UA) NEGATIVE (NEGATIVE); KETONES,URINE NEGATIVE (NEGATIVE); LEUKOCYTE ESTERASE ,URINE 1+ (NEGATIVE); NITRITE,URINE NEGATIVE (NEGATIVE); PROTEIN,URINE 1+ (NEGATIVE)
[2021-10-15 08:00] LABS: BACTERIA,URINE LARGE /HPF; SQUAMOUS EPITHELIAL CELL,UR 25-50 /HPF; WBC,URINE 0-2 /HPF
--- NOTE | 2021-10-15 08:20 | History & Physical-OB ---
OB - Chief Complaint & HPI Date/Time Date of Admission: Date of Admission: Oct 15, 2021 at 06:06 Date seen by a Provider: Oct 15, 2021 Time Seen by a Provider: 08:05 Chief Complaint/History OB-Reason for Admission/Chief: Obstetrical Complication Hx : 7 Hx Para: 4 Expected Date of Delivery: Oct 22, 2021 Gestational Age in Weeks: 39 Gestational Age in Days: 0 Indication for induction: medical complication Other reason for admission: at 39w0d, complicated by gestational diabetes controlled on metformin, history of herpes on valacyclovir suppression therapy with no active lesions or prodrome currently. EFW [id number] on 10/04. Has been having weekly BPP which have been reassuring, most recently on 10/11, 07/08 with MARK 18. Admitted for IOL due to GDMA2. History of Labs O+, antibody neg, RI. HIV/HepB/RPR NR. GC/chlamydia neg. GBS negative. Allergies and Home Medications Allergies Coded Allergies: No Known Drug Allergies (Unverified , 11/02/16) Patient Home Medication List Home Medication List Reviewed: Yes Hydroxyzine HCl (Hydroxyzine HCl) 10 Mg Tablet, 10 MG PO NEEDED Prescribed by: MARK CARRASCO on 10/05/21 1419 Last Action: Reviewed Metformin HCl (Metformin HCl) 500 Mg Tablet, 500 MG PO DAILY, (Reported) Entered as Reported by: KASSIDY DALE on 09/18/211935 Last Action: Reviewed Vit No.124/Iron/FA ( Vitamin Tablet) 1 Each Tablet, 1 EACH PO DAILY, (Reported) Entered as Reported by: KASSIDY DALE on 09/18/211935 Last Action: Reviewed Valacyclovir HCl (Valacyclovir) 500 Mg Tablet, 500 MG PO, (Reported) Entered as Reported by: MARK CARRASCO on 10/05/21 1420 Last Action: Reviewed Discontinued Medications Sertraline HCl (Zoloft) 25 Mg Tablet, 25 MG PO DAILY Discontinued Reason: No Longer Taking Prescribed by: MARK CARRASCO on 10/05/21 1409 Last Action: Discontinued OB - History Hx of Present Care: Yes Ultrasounds: Normal mid trimester US Obstetrical Complications: Gestational Diabetes Obstetrical History Hx : 7 Hx Para: 4 Hx # Term Pregnancies: 4 Hx # Pregnancies: 0 Number of Living Children: 4 Hx Termination: No Hx Multiple Gestation: No Hx Ectopic : No Hx Stillbirth: No Hx Complication: No Hx Induced Hypertens: No Hx Maternal Gestational Diabet: No Hx Hemorrhage: No Delivery History Hx Dystocia: No Hx Forceps Assisted Delivery: No Hx Vacuum Extraction Assisted: No Hx Placenta Abnormality: No Hx Distress: No Hx Large For Gestational Age I: No Hx Small for Gestational Age I: No Hx Section: No Hx Vaginal Delivery Post C-Sec: No Hx Blood Disorders: Yes (anemia) Adverse Rxn to Tranfusion: No Patient Past Medical History PMHx: Gestational diabetes Social History/Family History Alcohol Use: Denies Use Recreational Drug Use: No Smoking Cessation: Never smoker 2nd Hand Smoke Exposure: No Immunizations Hepatitis A: No Hepatitis B: No Tetanus Booster (TDap): Less than 5yrs (08/29/21) Date of Influenza Vaccine: Aug 29, 2021 Rubella: immune RPR/VDRL: Negative GBS Status: Negative HBsAG: Negative OB - Admission Exam Physical Exam Vitals: Vital Signs 10/15/21 10/15/21 06:42 06:43 Temp 36.9 Pulse 80 Resp 18 B/P (MAP) 129/84 (99) Pulse Ox 98 O2 Delivery Room Air HEENT: NCAT Abdomen: Non tender Extremities: Edema (trace) Cervical Dilatation: 5cm Effacement: 25% Station: -3 Membranes: Ruptured (AROM at time of exam) Amniotic Fluid: Thick Meconium Heart Rate: 130's Accelerations: Accelerations Present Decelerations: No Decelerations Short Term Variability: Present Prison Variability: Average (6-25) Contractions on Admission: 6-10 Minutes Apart Intensity: Moderate Rich Scoring Tool (Modified) Dilation (cm): 3-4cm (2) Effacement (%): 0-30% (0) Descent/Station: -3 (0) Cervix Consistency: Soft (2) Cervix Position: Anterior (2) Add 1 point for: Each previous vaginal delivery (1) (4) Rich Score: 10 Labs Laboratory Tests Test 10/15/21 06:20 10/15/21 07:30 Range/Units Urine Color YELLOW Urine Clarity CLEAR Urine pH 7.0 5-9 Urine Specific [place] 1.020 1.016-1.022 Urine Protein 1+ H NEGATIVE Urine Glucose (UA) NEGATIVE NEGATIVE Urine Ketones NEGATIVE NEGATIVE Urine Nitrite NEGATIVE NEGATIVE Urine Bilirubin NEGATIVE NEGATIVE Urine Urobilinogen 0.2 < = 1.0 MG/DL Urine Leukocyte Esterase 1+ H NEGATIVE Urine RBC (Auto) NEGATIVE NEGATIVE Urine RBC NONE /HPF Urine WBC 0-2 /HPF Urine Squamous Epithelial Cells 25-50 H /HPF Urine Crystals NONE /LPF Urine Bacteria LARGE H /HPF Urine Casts NONE /LPF Urine Mucus NEGATIVE /LPF Urine Culture Indicated NO White Blood Count 8.8 4.3-11.0 10^3/uL Red Blood Count 4.06 3.80-5.11 10^6/uL Hemoglobin 11.2 L 11.5-16.0 g/dL Hematocrit 33 L 35-52 % Mean Corpuscular Volume 81 80-99 fL Mean Corpuscular Hemoglobin 28 25-34 pg Mean Corpuscular Hemoglobin Concent 34 32-36 g/dL Red Cell Distribution Width 15.0 H 10.0-14.5 % Platelet Count 321 130-400 10^3/uL Mean Platelet Volume 10.9 9.0-12.2 fL Immature Granulocyte % (Auto) 1 % Neutrophils (%) (Auto) 52 42-75 % Lymphocytes (%) (Auto) 39 12-44 % Monocytes (%) (Auto) 8 0-12 % Eosinophils (%) (Auto) 1 0-10 % Basophils (%) (Auto) 0 0-10 % Neutrophils # (Auto) 4.6 1.8-7.8 10^3/uL Lymphocytes # (Auto) 3.4 1.0-4.0 10^3/uL Monocytes # (Auto) 0.7 0.0-1.0 10^3/uL Eosinophils # (Auto) 0.1 0.0-0.3 10^3/uL Basophils # (Auto) 0.0 0.0-0.1 10^3/uL Immature Granulocyte # (Auto) 0.0 0.0-0.1 10^3/uL OB - Assessment/Plan/Diagnosis Assessment Admission Dx Term intrauterine at 39 weeks gestation Gestational diabetes, oral medication controlled History of genital herpes with no current outbreak, on valacyclovir suppression Admission Status: Inpatient Order (span 2 midnights) Reason for Inpatient Admission: Labor, delivery and course Plan Plan: Induction Induction Method: per Pitocin Protocol ESTRADA RAYGOZA MD Oct 15, 2021 08:20
[2021-10-15] MEDS ORDERED: BUTORPHANOL INJ 2 MG/ML (STADOL) VIAL IV ONE (10:15)
[2021-10-15] MEDS ORDERED: BUTORPHANOL INJ 2 MG/ML (STADOL) VIAL ONE (10:21)
[2021-10-15] MEDS ORDERED: CATHETER FLUSH 10 ML SYR IV SCH (14:00)
[2021-10-15] MEDS ORDERED: PROMETHAZINE INJ 25 MG/ML (PHENERGAN) AMP ONE (14:31)
[2021-10-15] MEDS ORDERED: PROMETHAZINE INJ 25 MG/ML (PHENERGAN) AMP IVP ONE (14:45)
--- NOTE | 2021-10-15 16:05 | OB Labor & Delivery Record ---
Vag Delivery Note Vag Delivery Note Date of Delivery: 10/15/21 Preoperative Diagnosis: Angie Nieves is a (31 /Para 7 / 4, Gestational Age (wks)39with 0 days Postoperative Diagnosis: Same Surgeon: ESTRADA RAYGOZA Anesthesia: None Delivery Type: Findings: Viable female , apgars 8/9, weight 8#11 Lacerations: none Intact placenta with 3 vessel cord. No nuchal cord, body cord or shoulder dystocia Estimated Blood Loss: 350 ml Complications: None Condition: Stable Description of Procedure: The patient is a 31 year old female who presented for IOL for GDMA2 at 39 weeks. She was admitted and informed consent was obtained. Her labor course was remarkable for prolonged second stage and meconium stained fluid. She progressed to complete dilatation and began to push. She was then set up for delivery. The infant's head was delivered atraumatically in the OA position. The shoulders and remainder of the 's body were then delivered without difficulty. Upon delivery, the infant was placed on maternal abdomen and cried spontaneously. After a delay, the cord was doubly clamped and cut and the was handed off to the pediatric staff. An intact placenta with 3-vessel cord delivered via Brit and there was found to be minimal bleeding.~ Vigorous fundal massage was performed and the fundus was found to be firm. IV oxytocin was given. Examination of the vagina and perineum revealed no lacerations. Following the delivery, sponge, instrument and needle counts were correct. Mom and baby were both in stable condition in the labor suite. Vitals - Labs Vital Signs - I&O Vital Signs Date Time Temp Pulse Resp B/P (MAP) Pulse Ox O2 Delivery O2 Flow Rate FiO2 10/15/21 13:25 137 16 137/75 (95) Room Air 10/15/21 13:10 137 16 137/75 (95) Room Air 10/15/21 12:55 112 16 147/92 (110) Room Air 10/15/21 12:40 122 16 152/67 (95) Room Air 10/15/21 12:25 120 16 155/70 (98) Room Air 10/15/21 12:10 125 16 130/77 (94) Room Air 10/15/21 11:55 96 16 126/66 (86) Room Air 10/15/21 11:40 111 16 153/99 (117) Room Air 10/15/21 11:25 94 16 141/86 (104) Room Air 10/15/21 11:10 89 16 135/62 (86) Room Air 10/15/21 10:55 89 16 131/72 (91) Room Air 10/15/21 10:40 82 16 114/67 (83) Room Air 10/15/21 10:25 122 16 126/79 (95) Room Air 10/15/21 10:10 100 16 139/90 (106) Room Air 10/15/21 09:55 89 16 143/76 (98) Room Air 10/15/21 09:40 37.5 86 16 130/75 (93) Room Air 10/15/21 09:25 92 16 131/72 (91) Room Air 10/15/21 09:10 100 16 128/78 (95) 99 Room Air 10/15/21 08:55 91 16 120/77 (91) 99 Room Air 10/15/21 08:40 95 16 139/82 (101) 99 Room Air 10/15/21 08:25 83 16 110/66 (81) 99 Room Air 10/15/21 08:10 78 16 127/75 (92) 99 Room Air 10/15/21 07:35 85 16 133/88 (103) 99 Room Air 10/15/21 06:43 36.9 80 18 98 Room Air 10/15/21 06:42 36.9 80 16 129/84 (99) 98 Room Air Labs Laboratory Tests 10/15/21 06:20: Urine Color YELLOW, Urine Clarity CLEAR, Urine pH 7.0, Urine Specific [place] 1 .020, Urine Protein 1+H, Urine Glucose (UA) NEGATIVE, Urine Ketones NEGATIVE, Urine Nitrite NEGATIVE, Urine Bilirubin NEGATIVE, Urine Urobilinogen 0.2, Urine Leukocyte Esterase 1+H, Urine RBC (Auto) NEGATIVE, Urine RBC NONE, Urine WBC 0- 2, Urine Squamous Epithelial Cells 25-50H, Urine Crystals NONE, Urine Bacteria LARGEH, Urine Casts NONE, Urine Mucus NEGATIVE, Urine Culture Indicated NO 10/15/21 07:30: White Blood Count 8.8, Red Blood Count 4.06, Hemoglobin 11.2L, Hematocrit 33L, Mean Corpuscular Volume 81, Mean Corpuscular Hemoglobin 28, Mean Corpuscular Hemoglobin Concent 34, Red Cell Distribution Width 15.0H, Platelet Count 321, Mean Platelet Volume 10.9, Immature Granulocyte % (Auto) 1, Neutrophils (%) (Auto) 52, Lymphocytes (%) (Auto) 39, Monocytes (%) (Auto) 8, Eosinophils (%) (Auto) 1, Basophils (%) (Auto) 0, Neutrophils # (Auto) 4.6, Lymphocytes # (Auto) 3.4, Monocytes # (Auto) 0.7, Eosinophils # (Auto) 0.1, Basophils # (Auto) 0.0, Immature Granulocyte # (Auto) 0.0, Glucose Level 58*L 10/15/21 08:38: Glucometer 58*L ESTRADA RAYGOZA MD Oct 15, 2021 16:05
[2021-10-15] MEDS ORDERED: BENZOCAINE/MENTHOL (DERMOPLAST) 56 ML CAN TP PRN (16:30)
[2021-10-15] MEDS ORDERED: WITCH HAZEL(TUCKS) 40 EA JAR TOP PRN (16:30)
[2021-10-15] MEDS ORDERED: OXYTOCIN PRE-MIX DRIP 500 ML IV SCH (16:30)
[2021-10-15] MEDS ORDERED: IBUPROFEN 600 MG (MOTRIN) TAB PO ONE (19:18)
[2021-10-15] MEDS: DOCUSATE SODIUM 100 MG (COLACE) CAP PO SCH (19:28)
[2021-10-16 00:30] VITALS: BP 122/58
[2021-10-16] MEDS ORDERED: IBUPROFEN 600 MG (MOTRIN) TAB PO ONE (00:45)
[2021-10-16] MEDS: IBUPROFEN 600 MG (MOTRIN) TAB PO PRN ×4 (00:54→20:03)
[2021-10-16 04:20] VITALS: BP 102/51
[2021-10-16 06:08] LABS: BASOPHILS % (AUTO) 0 % (0-10); EOSINOPHILS % (AUTO) 0 % (0-10); HEMATOCRIT 25 % (35-52); HEMOGLOBIN 8.2 g/dL (11.5-16.0); LYMPHOCYTES # (AUTO) 5.4 10^3/uL (1.0-4.0); LYMPHOCYTES % (AUTO) 33 % (12-44); MEAN CORPUSCULAR HEMOGLOBIN 27 pg (25-34); MEAN CORPUSCULAR HGB CONC 33 g/dL (32-36); MEAN CORPUSCULAR VOLUME 83 fL (80-99); MEAN PLATELET VOLUME 10.6 fL (9.0-12.2); MONOCYTES # (AUTO) 1.4 10^3/uL (0.0-1.0); MONOCYTES % (AUTO) 9 % (0-12); NEUTROPHILS # (AUTO) 9.6 10^3/uL (1.8-7.8); NEUTROPHILS % (AUTO) 58 % (42-75); PLATELET COUNT 262 10^3/uL (130-400); WHITE BLOOD COUNT 16.5 10^3/uL (4.3-11.0)
[2021-10-16 07:30] VITALS: BP 92/55
[2021-10-16] MEDS: DOCUSATE SODIUM 100 MG (COLACE) CAP PO SCH ×2 (07:32→20:02)
[2021-10-16] MEDS: PRENATAL VITAMIN 1 EA TAB PO SCH (07:32)
--- NOTE | 2021-10-16 08:51 | Progress Note ---
Subjective Subjective/Events-last exam Patient reports doing well. Bleeding has slowed. Breast and bottle feeding going well. Objective Exam Last Set of Vital Signs Vital Signs Date Time Temp Pulse Resp B/P (MAP) Pulse Ox O2 Delivery O2 Flow Rate FiO2 10/16/21 04:20 36.6 99 18 102/51 (68) 97 Room Air Capillary Refill : Less Than 3 Seconds I&O Intake and Output 10/16/21 00:00 Intake Total 500 ml Balance 500 ml Intake IV Total 500 ml Daily Weight Change No General: Alert, Oriented X3, Cooperative Psych/Mental Status: Mood NL Results/Procedures Lab Laboratory Tests 10/15/21 09:23: Glucometer 94 10/16/21 05:55: White Blood Count 16.5H, Red Blood Count 3.00L, Hemoglobin 8.2#L, Hematocrit 25L , Mean Corpuscular Volume 83, Mean Corpuscular Hemoglobin 27, Mean Corpuscular Hemoglobin Concent 33, Red Cell Distribution Width 15.1H, Platelet Count 262, Mean Platelet Volume 10.6, Immature Granulocyte % (Auto) 0, Neutrophils (%) (Auto) 58, Lymphocytes (%) (Auto) 33, Monocytes (%) (Auto) 9, Eosinophils (%) (Auto) 0, Basophils (%) (Auto) 0, Neutrophils # (Auto) 9.6H, Lymphocytes # (Auto) 5.4H, Monocytes # (Auto) 1.4H, Eosinophils # (Auto) 0.0, Basophils # (Auto) 0.0, Immature Granulocyte # (Auto) 0.1 Assessment/Plan Assessment/Plan (1) Vaginal delivery Assessment & Plan: s/p on 10/15/21 following IOL at 39wk for GDMA2. LGA infant - doing well - routine course - anticipate DC home tomorrow (2) Gestational diabetes mellitus, Assessment & Plan: - BS controlled with Metformin during - will not continue Metformin but pt will need 2h GTT in 6-8 weeks. (3) anemia Status: Acute Assessment & Plan: pre-delivery Hb 11.2, post-delivery 8.2 (asymptomatic) +ferrous sulfate 325mg daily (4) HSV infection Status: Chronic Assessment & Plan: - tx prophylactically with valcyclovir - asymptomatic Copy Copies To 1: ESTRADA RAYGOZA MD, LINDA K DO Oct 16, 2021 08:51
[2021-10-16 14:00] VITALS: BP 116/67
[2021-10-16] MEDS: FERROUS SULF 325 MG (IRON) TAB PO SCH (14:09)
[2021-10-16 20:06] VITALS: BP 120/74
[2021-10-16] MEDS: CATHETER FLUSH 10 ML SYR IV SCH ×2 (21:09→21:10)
[2021-10-17 02:27] VITALS: BP 107/62
[2021-10-17] MEDS: IBUPROFEN 600 MG (MOTRIN) TAB PO PRN ×2 (02:47→08:17)
[2021-10-17] MEDS: CATHETER FLUSH 10 ML SYR IV SCH (06:06)
[2021-10-17] MEDS: PRENATAL VITAMIN 1 EA TAB PO SCH (08:17)
[2021-10-17] MEDS: DOCUSATE SODIUM 100 MG (COLACE) CAP PO SCH (08:17)
[2021-10-17] MEDS: FERROUS SULF 325 MG (IRON) TAB PO SCH (08:17)
[2021-10-17 08:25] VITALS: BP 111/55
[2021-10-17] MEDS ORDERED: FERR325T24 PO (09:35)
[2021-10-17] MEDS ORDERED: IBUP-844 PO (09:35)
--- NOTE | 2021-10-17 09:39 | Short Stay Summary ---
Discharge Summary Hospital Course Final Diagnosis: see Hospital Course Hospital Course Date of Admission: Oct 15, 2021 at 06:06 Date of Discharge: 10/17/21 Discharge Diagnosis: (1) Vaginal delivery Assessment & Plan: s/p on 10/15/21 following IOL at 39wk for GDMA2. LGA infant - doing well - routine course (2) Gestational diabetes mellitus, Assessment & Plan: - BS controlled with Metformin during - will not continue Metformin but pt will need 2h GTT in 8-12 weeks. (3) anemia Status: Acute Assessment & Plan: pre-delivery Hb 11.2, post-delivery 8.2 (asymptomatic) +ferrous sulfate 325mg daily - RX sent to [facility] (4) HSV infection Status: Chronic Assessment & Plan: - tx prophylactically with valcyclovir - asymptomatic - does not need to continue with valcyclovir Hospital Course: see above Labs and Pending Lab Test: Discharge Meds: Ferrous Sulfate 325mg daily (RX) Ibuprofen 600mg every 6 hours as needed for pain or cramping (RX) continue Vitamin daily Discontinue: Metformin Valacyclovir Assessment/Pt Instructions Follow up with Dr. Pradhan in 6 weeks. Will need glucose tolerance test in 8-12 weeks. Discharge Instructions Discharge Diet: No Restrictions Discharge Physical Examination General Appearance: Alert, Oriented X3, Cooperative Psych/Mental Status: Mental Status NL, Mood NL Allergies: Coded Allergies: No Known Drug Allergies (Unverified , 11/02/16) Copy Copies To 1: ESTRADA PRADHAN MD Discharge Summary Date of Admission Oct 15, 2021 at 06:06 Date of Discharge DANY FORTUNE DO Oct 17, 2021 09:39
== END 2021-10-17 12:30 | disposition home or self-care (01) | DRG 806 ==
LOC: LDRP 06:06
PROVIDERS: ADMIT Family Medicine; ATTEND Family Medicine
PROC: 10E0XZZ Delivery of Products of Conception, External Approach (ICD-10-PCS; principal; 2021-10-15)
PROC: 3E033VJ Introduction of Other Hormone into Peripheral Vein, Percutaneous Approach (ICD-10-PCS; 2021-10-15)
DX: O24.425 Gestational diabetes mellitus in childbirth, controlled by oral hypoglycemic drugs (principal); O98.32 Other infections with a predominantly sexual mode of transmission complicating childbirth; Z37.0 Single live birth; Z79.84 Long term (current) use of oral hypoglycemic drugs; Z3A.39 39 weeks gestation of pregnancy; Z79.899 Other long term (current) drug therapy; A60.00 Herpesviral infection of urogenital system, unspecified; O77.0 Labor and delivery complicated by meconium in amniotic fluid; O63.1 Prolonged second stage (of labor); O90.81 Anemia of the puerperium
CPT/HCPCS: 36415; 81000; 82947; 85025; 86850; 86900; 86901

== ENCOUNTER 2022-11-14 18:56 | Emergency (ER) | payer SELFPAY ==
[~2022-11-14] VITALS: Ht 154 cm; Wt 72.5 kg
[~2022-11-14 18:56] MED LIST changes: +ACET-11 PO; -ACET1TAB43 PO; +ALBU8.5H6 IH; +FERR325T24 PO; +IBUP-844 PO; -RT-ALBUINH IH
[2022-11-14 19:33] LABS: BASOPHILS % (AUTO) 0 % (0-10); CALCIUM 9.1 MG/DL (8.5-10.1); EOSINOPHILS % (AUTO) 0 % (0-10); HEMATOCRIT 39 % (35-52); LYMPHOCYTES # (AUTO) 2.2 10^3/uL (1.0-4.0); LYMPHOCYTES % (AUTO) 40 % (12-44); MEAN CORPUSCULAR HEMOGLOBIN 28 pg (25-34); MEAN CORPUSCULAR HGB CONC 33 g/dL (32-36); MEAN CORPUSCULAR VOLUME 83 fL (80-99); MEAN PLATELET VOLUME 9.3 fL (9.0-12.2); MONOCYTES # (AUTO) 0.3 10^3/uL (0.0-1.0); MONOCYTES % (AUTO) 6 % (0-12); NEUTROPHILS # (AUTO) 2.9 10^3/uL (1.8-7.8); NEUTROPHILS % (AUTO) 54 % (42-75); PLATELET COUNT 286 10^3/uL (130-400); WHITE BLOOD COUNT 5.5 10^3/uL (4.3-11.0)
[2022-11-14 19:34] LABS: TOTAL PROTEIN 7.9 GM/DL (6.4-8.2)
[2022-11-14 19:36] LABS: BILIRUBIN,TOTAL 0.2 MG/DL (0.1-1.0)
[2022-11-14 19:37] LABS: CREATININE SERUM 0.69 MG/DL (0.60-1.30)
[2022-11-14 19:43] LABS: INR 0.9 (0.8-1.4); PROTHROMBIN TIME PATIENT 12.7 SEC (12.2-14.7)
[2022-11-14 19:45] LABS: BILIRUBIN,URINE NEGATIVE (NEGATIVE); CLARITY,URINE CLEAR; COLOR,URINE YELLOW; GLUCOSE, URINE (UA) NEGATIVE (NEGATIVE); KETONES,URINE NEGATIVE (NEGATIVE); LEUKOCYTE ESTERASE ,URINE NEGATIVE (NEGATIVE); NITRITE,URINE NEGATIVE (NEGATIVE); PROTEIN,URINE NEGATIVE (NEGATIVE)
--- NOTE | 2022-11-14 19:45 | Diagnostic Imaging Report ---
INDICATION: Chest pain. COMPARISON: Prior examination from 03/19/2021. FINDINGS: The heart size, mediastinal configuration, and pulmonary vascularity are within normal limits. There is no pleural effusion, pneumothorax, or pneumonia. The osseous structures are unremarkable. IMPRESSION: No acute cardiopulmonary abnormality. Dictated by: Dictated on workstation # [id number]
--- NOTE | 2022-11-14 19:49 | ED General ---
General Chief Complaint: General Problems/Pain Stated Complaint: SYNCOPAL EPISODE Nursing Triage Note: PT TO [facility] BY [facility] WITH SON WITH C/O CP X2 DAYS, BUNRETT FOR A FEW WEEKS AND DISSINESS Source of Information: Patient Exam Limitations: No Limitations History of Present Illness Date Seen by Provider: Nov 14, 2022 Time Seen by Provider: 19:15 Initial Comments Patient is a 32-year-old female who presents the emergency department via EMS fo r evaluation of approximately 2 weeks of headache as well as 2 days of chest pain. Patient was seen at [facility] and referred here for further evaluation. Patient has been taking ibuprofen and Tylenol for the symptoms. She states she has also had some dizziness, fatigue, mild cough, and body aches. Denies any nausea/vomiting/diarrhea. States the headache is worse with bright lights, bending forward, or rapid movements of her head. Denies any neck stiffness. Allergies and Home Medications Allergies Coded Allergies: No Known Drug Allergies (Unverified , 11/02/16) Patient Home Medication List Home Medication List Reviewed: Yes Ferrous Sulfate (Ferosul) 325 Mg Tablet, 325 MG PO DAILY Prescribed by: DANY FORTUNE on 10/17/21 0935 Ibuprofen (Ibu) 600 Mg Tablet, 600 MG PO Q6HR PRN for CRAMPS Prescribed by: DANY FORTUNE on 10/17/21 0935 Vit No.124/Iron/FA ( Vitamin Tablet) 1 Each Tablet, 1 EACH PO DAILY, (Reported) Entered as Reported by: KASSIDY DALE on 09/18/21 193 Review of Systems Review of Systems Constitutional: see HPI, malaise EENTM: no symptoms reported Respiratory: see HPI, cough Cardiovascular: see HPI, chest pain Genitourinary: no symptoms reported Musculoskeletal: see HPI Skin: no symptoms reported Psychiatric/Neurological: See HPI, Headache Past Vopkcuu-[id number]-Idmylq Hx Patient Social History Tobacco Use?: No Use of E-Cig and/or Vaping dev: No Substance use?: No Alcohol Use?: No Pt feels they are or have been: No Immunizations Up To Date Tetanus Booster (TDap): Less than 5yrs PED Vaccines UTD: No Influenza Vaccine Up-to-Date: No; Not Current Seasonal Allergies Seasonal Allergies: No Past Medical History Surgeries: Yes (ERCP AFTER CHOLECYSTECTOMY) Gallbladder Respiratory: No Cardiac: No Neurological: No Reproductive Disorders: No Female Reproductive Disorders: Denies Sexually Transmitted Disease: Yes (+HSV) HIV/AIDS: No Gastrointestinal: Yes (S/P JOHN AND ERCP) Chronic Diarrhea, Gall Bladder Disease Musculoskeletal: No Endocrine: No HEENT: No Cancer: No Psychosocial: No Integumentary: No Blood Disorders: Yes (ANEMIA) Adverse Reaction/Blood Tranf: No Family Medical History Cancer 19 MOTHER (SPINAL CORD CANCER?) Congenital heart disease G8 SISTER Family history: Cardiovascular disease G8 SISTER MATERNAL GRANDMOTHER Family history: Diabetes mellitus MATERNAL GRANDMOTHER Seizure disorder MATERNAL GRANDMOTHER Stroke MATERNAL GRANDMOTHER Cancer Physical Exam Vital Signs Vital Signs - First Documented 11/14/22 19:13 Temp 37.6 Pulse 86 Resp 16 B/P (MAP) 119/82 (94) Capillary Refill : Height, Weight, BMI Height: 5'3.00" Weight: 180lbs. 0.0oz. [id number]; 30.00 BMI Method:Estimated General Appearance: No Apparent Distress, WD/WN HEENT: PERRL/EOMI, TMs Normal, Normal ENT Inspection, Pharynx Normal Neck: Full Range of Motion, Normal Inspection, Non Tender, Supple Respiratory: Chest Non Tender, Lungs Clear, Normal Breath Sounds, No Accessory Muscle Use, No Respiratory Distress Cardiovascular: Regular Rate, Rhythm Gastrointestinal: Non Tender, Soft Extremity: Non Tender, No Calf Tenderness Neurologic/Psychiatric: Alert, Oriented x3, No Motor/Sensory Deficits, Normal Mood/Affect Skin: Normal Color, Warm/Dry Progress/Results/Core Measures Suspected Sepsis SIRS Temperature: Pulse: 86 Respiratory Rate: 16 Laboratory Tests 11/14/22 19:00: White Blood Count 5.5 Blood Pressure 119 /82 Mean: 94 Laboratory Tests 11/14/22 19:00: Creatinine 0.69, INR Comment 0.9, Platelet Count 286, Total Bilirubin 0.2 Results/Orders Lab Results Laboratory Tests Test 11/14/22 19:00 11/14/22 19:36 Range/Units White Blood Count 5.5 4.3-11.0 10^3/uL Red Blood Count 4.73 3.80-5.11 10^6/uL Hemoglobin 13.0 11.5-16.0 g/dL Hematocrit 39 35-52 % Mean Corpuscular Volume 83 80-99 fL Mean Corpuscular Hemoglobin 28 25-34 pg Mean Corpuscular Hemoglobin Concent 33 32-36 g/dL Red Cell Distribution Width 15.7 H 10.0-14.5 % Platelet Count 286 130-400 10^3/uL Mean Platelet Volume 9.3 9.0-12.2 fL Immature Granulocyte % (Auto) 0 % Neutrophils (%) (Auto) 54 42-75 % Lymphocytes (%) (Auto) 40 12-44 % Monocytes (%) (Auto) 6 0-12 % Eosinophils (%) (Auto) 0 0-10 % Basophils (%) (Auto) 0 0-10 % Neutrophils # (Auto) 2.9 1.8-7.8 10^3/uL Lymphocytes # (Auto) 2.2 1.0-4.0 10^3/uL Monocytes # (Auto) 0.3 0.0-1.0 10^3/uL Eosinophils # (Auto) 0.0 0.0-0.3 10^3/uL Basophils # (Auto) 0.0 0.0-0.1 10^3/uL Immature Granulocyte # (Auto) 0.0 0.0-0.1 10^3/uL Prothrombin Time 12.7 12.2-14.7 SEC INR Comment 0.9 0.8-1.4 Activated Partial Thromboplast Time 29 24-35 SEC Sodium Level 136 135-145 MMOL/L Potassium Level 4.0 3.6-5.0 MMOL/L Chloride Level 104 98-107 MMOL/L Carbon Dioxide Level 21 21-32 MMOL/L Anion Gap 11 5-14 MMOL/L Blood Urea Nitrogen 12 7-18 MG/DL Creatinine 0.69 0.60-1.30 MG/DL Estimat Glomerular Filtration Rate 117 BUN/Creatinine Ratio 17 Glucose Level 87 70-105 MG/DL Calcium Level 9.1 8.5-10.1 MG/DL Corrected Calcium 9.1 8.5-10.1 MG/DL Magnesium Level 2.0 1.6-2.4 MG/DL Total Bilirubin 0.2 0.1-1.0 MG/DL Aspartate Amino Transf (AST/SGOT) 134 H 5-34 U/L Alanine Aminotransferase (ALT/SGPT) 269 H 0-55 U/L Alkaline Phosphatase 394 H 40-136 U/L Troponin I < 0.028 <0.028 NG/ML Total Protein 7.9 6.4-8.2 GM/DL Albumin 4.0 3.2-4.5 GM/DL Urine Color YELLOW Urine Clarity CLEAR Urine pH 7.0 5-9 Urine Specific [place] 1.015 L 1.016-1.022 Urine Protein NEGATIVE NEGATIVE Urine Glucose (UA) NEGATIVE NEGATIVE Urine Ketones NEGATIVE NEGATIVE Urine Nitrite NEGATIVE NEGATIVE Urine Bilirubin NEGATIVE NEGATIVE Urine Urobilinogen 0.2 < = 1.0 MG/DL Urine Leukocyte Esterase NEGATIVE NEGATIVE Urine RBC (Auto) NEGATIVE NEGATIVE Urine RBC NONE /HPF Urine WBC NONE /HPF Urine Squamous Epithelial Cells 2-5 /HPF Urine Crystals NONE /LPF Urine Bacteria TRACE /HPF Urine Casts NONE /LPF Urine Mucus NEGATIVE /LPF Urine Culture Indicated NO Urine Test NEGATIVE NEGATIVE My Orders Orders - ARACELI LEE APRN Ekg Tracing (11/14/22 19:04) Cbc With Automated Diff (11/14/22 19:19) Magnesium (11/14/22 19:19) Chest 1 View, Ap/Pa Only (11/14/22 19:19) Comprehensive Metabolic Panel (11/14/22 19:19) Protime With Inr (11/14/22 19:19) Partial Thromboplastin Time (11/14/22 19:19) O2 (11/14/22 19:19) Monitor-Rhythm Ecg Trace Only (11/14/22 19:19) Ed Iv/Invasive Line Start (11/14/22 19:19) Troponin I Julia (11/14/22 19:19) Ua Culture If Indicated (11/14/22 19:39) Hcg,Qualitative Urine (11/14/22 19:39) Prochlorperazine Injection (Compazine In (11/14/22 20:00) Diphenhydramine Injection (Benadryl Inje (11/14/22 20:00) Medications Given in ED Current Medications Medications Dose Ordered Sig/Sunny Route Start Time Stop Time Status Last Admin Dose Admin Diphenhydramine HCl 25 mg ONCE ONCE IVP 11/14/22 20:00 11/14/22 20:01 DC 11/14/22 20:23 25 MG Prochlorperazine Edisylate 10 mg ONCE ONCE IV 11/14/22 20:00 11/14/22 20:01 DC 11/14/22 20:23 10 MG Vital Signs/I&O 11/14/22 19:13 Temp 37.6 Pulse 86 Resp 16 B/P (MAP) 119/82 (94) Capillary Refill : Blood Pressure Mean: 94 Progress Note : Progress Note Patient is nontoxic and well-hydrated on exam. Vital signs are reassuring. No adventitious lung sounds or increased work of breathing noted. Patient was ambulatory to the room. No nuchal rigidity appreciated. Laboratory evaluation reassuring other than some mild transaminitis. Urinalysis unremarkable. Chest x-ray is acutely negative. No indication for further diagnostic testing at this time. Patient was given a migraine cocktail with some improvement of headache. Will be discharged home with recommendations for supportive care and close follow-up with PCP. Return precautions for urgent symptomology discussed. Patient verbalized understanding. Sinhala video logger utilized for all communication. Departure Impression Primary Impression: Migraine Qualified Codes: G43.909 - Migraine, unspecified, not intractable, without status migrainosus Additional Impression: Atypical chest pain Disposition: HOME, SELF-CARE Condition: Stable Departure-Patient Inst. Decision time for Depature: 21:05 Referrals: ESTRADA RAYGOZA MD (PCP/Family) Primary Care Physician Patient Instructions: Chest Pain, Adult ED, Migraines (DC) ARACELI LEE APRN Nov 14, 2022 19:49
[2022-11-14 19:59] LABS: BACTERIA,URINE TRACE /HPF
[2022-11-14] MEDS ORDERED: diphenhydrAMINE 50 MG/ML INJ (BENADRYL) IVP ONE (20:00)
[2022-11-14] MEDS ORDERED: PROCHLORPERAZINE 10 MG/2ML INJ (COMPAZINE) IV ONE (20:00)
[2022-11-14 21:13] VITALS: BP 122/81
== END 2022-11-14 21:15 | disposition home or self-care (01) ==
LOC: ER 18:56
DX: R07.89 Other chest pain (principal); G43.909 Migraine, unspecified, not intractable, without status migrainosus; Z28.310 Unvaccinated for COVID-19
CPT/HCPCS: 36415; 71045; 80053; 81000; 83735; 84484; 84703; 85025; 85610; 85730; 93005; 93041